=== PATIENT | male | born 1975 | race Caucasian/White ===

== ENCOUNTER 2017-06-16 04:09 | Inpatient (IN) | payer MEDICAID ==
[~2017-06-16] VITALS: Ht 170.2 cm; Wt 65.8 kg
--- NOTE | 2017-06-16 04:09 | NUR ---
Patient was BIBA and taken to bed 03 via gurney per EMS.
[2017-06-16 04:10] VITALS: BP 162/95
[2017-06-16] MEDS ORDERED: NACL 0.9% 1,000 ML IV ONE (04:35)
[2017-06-16] MEDS ORDERED: KETOROLAC 30 MG/ML VIAL IVP ONE (04:35)
[2017-06-16 04:54] LABS: HEMATOCRIT 22.7 % (36-52); HEMOGLOBIN 7.6 g/dL (12.0-18.0); MEAN CORPUSCULAR HEMOGLOBIN 28 pg (27-31); MEAN CORPUSCULAR HGB CONC 34 g/dL (33-37); MEAN CORPUSCULAR VOLUME 84 fL (80-94); PLATELET COUNT (AUTO) 109 K/uL (140-450); RED BLOOD CELL COUNT(AUTO) 2.71 MIL/uL (4.20-6.10); RED CELL DISTRIBUTION WIDTH 16.1 % (11.6-13.7); WHITE BLOOD COUNT (AUTO) 5.2 K/uL (4.8-10.8)
--- NOTE | 2017-06-16 04:56 | NUR ---
Patient taken to CT via saman persaud.
--- NOTE | 2017-06-16 05:04 | NUR ---
61Y/M PT BIBA C/O LOW BS39, [facility] GAVE D10 2ND ACCU CK BY [facility] 158. PT AAOX4 WITH PALE/COOL/SKIN, ACCU AT [facility] 104 AND HEADACHE. PT CAN NOT RECALL ANY HOME MEDS/DOSE AT THIS TIME. ER MD NOTIFTED. VSS.
[2017-06-16 05:07] LABS: ANION GAP 10.1 (8-16); CALCIUM 8.2 mg/dL (8.5-10.1); CARBON DIOXIDE 26.6 mmol/L (21-32); CHLORIDE 106 mmol/L (98-107); CREATININE 1.4 mg/dL (0.7-1.3); GFR ARICAN-AMERICAN 71 mL/min (>90); GFR NON ARICAN-AMERICAN 59 mL/min (>90); GLUCOSE 102 mg/dL (74-106); POTASSIUM 3.7 mmol/L (3.5-5.1); SODIUM SERUM 139 mmol/L (136-145); UREA NITROGEN, BLOOD 37 mg/dL (7-18)
[2017-06-16 05:10] LABS: EOSINOPHILS % (MANUAL) 7 % (0-4); LYMPHOCYTES % (MANUAL) 11 % (20-46); MONOCYTES % (MANUAL) 3 % (5-12); NEUTROPHILS % (MANUAL) 79 (43-65)
[2017-06-16 05:12] LABS: PARTIAL THROMBOPLASTIN TIME 26.9 secs (22-35.6)
[2017-06-16 05:13] LABS: ALANINE AMINOTRANSFERASE 40 U/L (16-63); ALBUMIN 2.9 g/dL (3.4-5.0); ALCOHOL, BLOOD < 3 mg/dL (<3); ALKALINE PHOSPHATASE 216 U/L (46-116); ASPARTATE AMINOTRANSFERASE 34 U/L (15-37); TOTAL BILIRUBIN 0.6 mg/dL (0.0-1.0); TOTAL PROTEIN, SERUM 6.5 g/dL (6.4-8.2)
--- NOTE | 2017-06-16 05:30 | NUR ---
PER JOSE MARTIN HOUSE SUPERVISER; ER HOLD PT. UNTIL 0700AM
[2017-06-16] MEDS ORDERED: NACL 0.9% 1,000 ML IV SCH (05:34)
[2017-06-16] MEDS ORDERED: MORPHINE SULFATE 2 MG/ML SYR IVP PRN (05:35)
[2017-06-16] MEDS ORDERED: ONDANSETRON 4 MG/2 ML VIAL IM/IVP PRN (05:35)
[2017-06-16] MEDS ORDERED: DOCUSATE SODIUM 100 MG GELCAP PO PRN (05:35)
[2017-06-16] MEDS ORDERED: ACETAMINOPHEN 325 MG TAB PO PRN (05:35)
[2017-06-16 05:54] LABS: AMPHETAMINE, URINE NEG. ng/ml (NEG <=1000); BARBITURATE, URINE NEG. ng/ml (NEG <=200); BENZODIAZEPINE, URINE NEG. ng/mL (NEG <=200); CANNABINOID, URINE NEG. ng/mL (NEG <=50); COCAINE, URINE NEG. ng/mL (NEG <=300); OPIATE, URINE NEG. ng/mL (NEG <=2000); PHENCYCLIDINE SCREEN,URINE NEG. ng/mL (NEG <=25)
[2017-06-16] MEDS ORDERED: MECLIZINE 25 MG TAB PO PRN ×2 (05:55→06:00)
--- NOTE | 2017-06-16 06:20 | NUR ---
Patient will be admitted to care of . Admited to TELEMETRY. Will go to [id number]. Belongings list completed. Report to MARIYA BOLDEN.
[2017-06-16] MEDS ORDERED: DEXT 5% / NACL 0.9% 500 ML IV SCH (07:10)
--- NOTE | 2017-06-16 07:20 | NUR ---
RECEIVED REPORT FROM YUAN MERAZ. PT ARRIVED ON MST UNIT AT 0620. PT AWAKE AND ALERT, NO SIGNS OF ACUTE DISTRESS. BOWEL SOUNDS ACTIVE IN ALL 4 QUADRANTS. BOWEL AND BLADDER CONTINENCE. SKIN INTACT. AMBULATORY WITH BRP. IV PATENT AND ASYMPTOMATIC. PATIENT DENIES PAIN AT THIS TIME. PATIENT BLOOD SUGAR 175, WILL ADMINISTER INSULIN ORDERED. RE-ORIENTED TO HOSPITAL AND TO UNIT, PT VERBALIZED UNDERSTANDING. BED IN LOW POSITION WITH BILATERAL HALF SIDE RAILS UP, CALL LIGHT WITHIN REACH. WILL CONTINUE TO MONITOR.
[2017-06-16 07:21] LABS: CHOL/HDL RATIO 1.9 (1-4.5); FREE T4 (FREE THYROXINE) 0.88 ng/dL (0.76-1.46); MAGNESIUM 2.2 mg/dL (1.8-2.4); THYROID STIMULATING HORMONE 2.16 uIU/mL (0.34-3.74)
--- NOTE | 2017-06-16 07:30 | NUR ---
PATIENT BLOOD SUGAR 175, NOTED, WILL ADMINISTER INSULIN ORDERED.
--- NOTE | 2017-06-16 08:00 | NUR ---
PATIENT BLOOD PRESSURE 176/[address] JENNIFER SANDERS.
[2017-06-16] MEDS ORDERED: ENALAPRILAT 2.5 MG/2 ML VIAL IVP SCH (08:04)
[2017-06-16] MEDS: BLOOD GLUCOSE MONITORING 1 DEV DEV FS SCH ×4 (08:09→21:00)
[2017-06-16] MEDS: LISINOPRIL 20 MG TAB PO SCH (08:37)
[2017-06-16] MEDS: INSULIN LISPRO SLIDING SCALE 100 UNITS/ML VIAL SUBQ PRN ×4 (08:42→21:02)
--- NOTE | 2017-06-16 08:45 | NUR ---
RECEIVED ORDER FOR VASOTEC FROM DR RODRIGUEZ FOR ELEVATED BLOOD PRESSURE OF 176/124, NOTED, WILL CARRY OUT.
[2017-06-16] MEDS: NACL 0.9% 1,000 ML IV SCH (08:48)
[2017-06-16 09:21] LABS: APPEARANCE,URINE CLEAR (CLEAR); BILIRUBIN,URINE NEGATIVE (NEGATIVE); BLOOD, URINE 2+ (NEGATIVE); COLOR,URINE YELLOW (YELLOW); LEUKOCYTE ESTERASE ,URINE NEGATIVE (NEGATIVE); NITRITE, URINE NEGATIVE (NEGATIVE); PROTEIN,URINE 2+ (NEGATIVE); UGLUCOSE NEGATIVE (NEGATIVE); UROBILINOGEN,URINE 0.2 EU/dL (0.2 - 1)
[2017-06-16 09:28] LABS: BACTERIA,URINE OCCASSIONAL /HPF (None Seen); WBC,URINE 0-5 (RARE) /HPF (0-5)
--- NOTE | 2017-06-16 11:04 | NUR ---
PATIENT COMPLAINT OF DIZZINESS AND PAIN IN HEAD 6/10. WILL ADMINISTER PRN MEDICATIONS ORDERED AND CONTINUE TO MONITOR.
[2017-06-16] MEDS ORDERED: METOPROLOL 25 MG TAB PO SCH (11:10)
--- NOTE | 2017-06-16 11:19 | NUR ---
PATIENT BLOOD SUGAR 279, NOTED, WILL ADMINISTER INSULIN ORDERED.
[2017-06-16] MEDS: HYDROcodone/APAP 7.5/325 MG 1 TAB PO PRN (11:22)
--- NOTE | 2017-06-16 11:26 | NUR ---
RECEIVED NEW ORDERS, NOTED, WILL CARRY OUT.
[2017-06-16 12:00] VITALS: BP 164/89
--- NOTE | 2017-06-16 14:20 | NUR ---
RECEIVED NEW ORDER TO TRANSFER PATIENT FROM TELE TO MED SURG, NOTED WILL CARRY OUT.
[2017-06-16] MEDS ORDERED: LABETALOL 100 MG/20 ML VIAL IVP SCH (15:28)
--- NOTE | 2017-06-16 15:30 | NUR ---
PATIENT RESTING COMFORTABLY IN BED, BLOOD PRESSURE 181/97, PULSE 77, TEMPERATURE 98.9, OXYGEN SATURATION 99%, RESPIRATIONS 18 AND 0/[address] RODRIGUEZ AND DR DIMAS BP AND PULSE.
--- NOTE | 2017-06-16 15:40 | NUR ---
RECEIVED NEW ORDER FOR LABETOLOL IVP FOR ELEVATED BLOOD PRESSURE. NOTED, WILL CARRY OUT.
--- NOTE | 2017-06-16 15:44 | NUR ---
PATIENT BLOOD SUGAR 277, NOTED, WILL ADMINISTER INSULIN ORDERED.
[2017-06-16 16:00] VITALS: BP 181/97
--- NOTE | 2017-06-16 16:56 | NUR ---
PATIENT RESTING COMFORTABLY SOCIAL SERVICES COORDINATOR PERFORMING CAROTID, BLE ARTERIAL AND VENOUS ULTRASOUNDS. BLOOD PRESSURE RE-EVALUATION IS 141/77 AND PULSE IS 78. WILL CONTINUE TO MONITOR.
--- NOTE | 2017-06-16 17:50 | NUR ---
PATIENT SITTING UPRIGHT EATING DINNER, NO SIGNS OF ACUTE DISTRESS. BED IN LOW POSITION WITH BILATERAL HALF SIDE RAILS UP, CALL LIGHT WITHIN REACH. WILL CONTINUE TO MONITOR.
--- NOTE | 2017-06-16 19:22 | NUR ---
PT AWAKE AND ALERT, NO SIGNS OF ACUTE DISTRESS. ENDORSED TO MACHINE STOPPAGE FREQUENCY CHECKER NURSE FOR CONTINUITY OF CARE.
--- NOTE | 2017-06-16 19:23 | NUR ---
RECEIVED REPORT FROM AM NURSE. PT ASLEEP, BUT IS AROUSED WHEN NAME IS CALLED. NO S/S OF DISTRESS. NO COMPLAINTS OF PAIN AT THIS TIME. WITH A RIGHT AC 20 G, PATENT AND INTACT. INITIAL ASSESSMENT DONE. NOTED WITH LEFT ANKLE EDEMA. WITH A RIGHT FOOT 3RD TOE AMPUTATION, AND A LEFT FOOT TOE AMPUTATION NOTED. ORIENTED PT TO THE UNIT, VERBALIZED UNDERSTANDING. WITH DR. HOFFMAN AT BEDSIDE FOR PSYCH CONSULT. WILL CONTINUE TO MONITOR. ALL NEEDS ATTENDED. CALL LIGHT WITHIN REACH. SAFETY CHECKS IN PLACE.
--- NOTE | 2017-06-16 19:25 | NUR ---
DR JUDD ASSESSED THE PATIENT FOR PSYCH EVALUATION AND HAD ORDERS OF MENTAL HEALTH COUNSELING. NOTED. WILL CONTINUE TO MONITOR FOR ANY CHANGES.
[2017-06-16] MEDS: CALCIUM CARB/VIT-D 500 MG/200 IU 1 TAB PO SCH (20:58)
[2017-06-16] MEDS: ATORVASTATIN 20 MG TAB PO SCH (20:58)
--- NOTE | 2017-06-16 21:02 | NUR ---
DUE MEDS GIVEN, WELL TOLERATED BY THE PATIENT. BLOOD SUGAR CHECK OF 297, GAVE 6 UNITS OF INSULIN. WILL CONTINUE TO MONITOR. ALL NEEDS ATTENDED. CALL LIGHT WITHIN REACH.
[2017-06-17] VITALS: BP 153/86
--- NOTE | 2017-06-17 | NUR ---
VITAL SIGNS STABLE. NO S/S OF DISTRESS. NO COMPLAINTS OF PAIN. WILL CONTINUE TO MONITOR. CALL LIGHT WITHIN REACH.
[2017-06-17] MEDS: NACL 0.9% 1,000 ML IV SCH (00:20)
--- NOTE | 2017-06-17 00:30 | NUR ---
INFORMED DR. FOLEY THAT THE PATIENT DID NOT HAVE AN ORDER FOR A DIET. PUT IN ORDERS FOR A [facility] DIET. NOTED.
--- NOTE | 2017-06-17 02:23 | NUR ---
MADE ROUNDS. PT ASLEEP. NO S/S OF DISTRESS. WILL CONTINUE TO MONITOR. CALL LIGHT WITHIN REACH.
--- NOTE | 2017-06-17 04:45 | NUR ---
MADE ROUNDS, PT ASLEEP. NO S/S OF DISTRESS. NO COMPLAINTS OF PAIN. WILL CONTINUE TO MONITOR. CALL LIGHT WITHIN REACH. SAFETY CHECKS IN PLACE.
[2017-06-17 06:05] LABS: ANION GAP 9.3 (8-16); CALCIUM 7.6 mg/dL (8.5-10.1); CARBON DIOXIDE 26.1 mmol/L (21-32); CREATININE 1.6 mg/dL (0.7-1.3); PHOSPHORUS 4.8 mg/dL (2.5-4.9); POTASSIUM 4.4 mmol/L (3.5-5.1)
[2017-06-17] MEDS: HYDROcodone/APAP 7.5/325 MG 1 TAB PO PRN (06:34)
[2017-06-17] MEDS: INSULIN LISPRO SLIDING SCALE 100 UNITS/ML VIAL SUBQ PRN ×2 (06:34→12:46)
[2017-06-17] MEDS: BLOOD GLUCOSE MONITORING 1 DEV DEV FS SCH ×8 (07:03→20:20)
--- NOTE | 2017-06-17 07:19 | NUR ---
ENDORSED TO AM SHIFT NURSE FOR CONTINUITY OF CARE, IN STABLE CONDITION.
--- NOTE | 2017-06-17 07:22 | NUR ---
REPORT RECEIVED FROM NIGHT NURSE, A&OX4, NO COMPLAINTS OF PAIN, IV PATENT, CALL LIGHT WITHIN REACH, SAFETY MEASURES ENSURED, PT UP FOR BREAKFAST.
[2017-06-17 08:00] VITALS: BP 176/99
--- NOTE | 2017-06-17 08:09 | NUR ---
PATIENT HAS BEEN SCREENED AND CATEGORIZED MODERATE NUTRITION RISK. PATIENT WILL BE SEEN WITHIN 3-5 DAYS OF ADMISSION. 06/18/17-06/20/[address]
[2017-06-17] MEDS ORDERED: METOPROLOL 25 MG TAB PO SCH ×2 (09:00→21:00)
[2017-06-17] MEDS ORDERED: INSULIN NPH HUM/REG INSULIN HM 100 UNIT/ML 10 ML VIAL SQ SCH ×3 (09:00→17:00)
[2017-06-17] MEDS: ASPIRIN 81 MG TAB.CHEW PO SCH (09:35)
[2017-06-17] MEDS: CALCIUM CARB/VIT-D 500 MG/200 IU 1 TAB PO SCH ×2 (09:35→20:18)
[2017-06-17] MEDS: LISINOPRIL 20 MG TAB PO SCH (09:36)
--- NOTE | 2017-06-17 09:43 | NUR ---
MORNING MEDS GIVEN WITH TEACHING, PT VERBALIZED UNDERSTANDING, NO COMPLAINTS OF DISCOMFORT, NO S/S DISTRESS, SAFETY MEASURES ENSURED, WILL MONITOR.
--- NOTE | 2017-06-17 11:26 | NUR ---
SS NOTE: I SPOKE WITH PT WITH SERGIO GARCIA TO TRANSLATE BEDSIDE. I PROVIDED PT WITH [facility]PT [facility] [place].
--- NOTE | 2017-06-17 12:45 | NUR ---
PATIENT GIVEN HUMULIN 70/30 AND HUMALOG ORDERED BY MD PIÑA.
[2017-06-17] MEDS: DEXTROSE 50% 50 ML SYR IVP PRN (15:29)
--- NOTE | 2017-06-17 15:30 | NUR ---
PT STATES HE FEELS DIZZY. BS CHECKED. 47. D50 GIVEN[address] DR. EARLY MADE AWARE. WILL RECHECK.
[2017-06-17 16:00] VITALS: BP 169/89
--- NOTE | 2017-06-17 16:30 | NUR ---
PT'S BLOOD SUGAR 62. APPLE JUICE GIVEN. DR. EARLY NOTIFIED.
[2017-06-17] MEDS ORDERED: DEXT 5% /NACL 0.9% 1,000 ML IV ONE (17:25)
--- NOTE | 2017-06-17 19:30 | NUR ---
REPORT GIVEN TO NIGHT NURSE, SAFETY ENSURED, NO S/S DISTRESS.
--- NOTE | 2017-06-17 19:31 | NUR ---
RECEIVED REPORT FROM AM NURSE. PT AWAKE, AOX4, GEORGIAN SPEAKING. IS AMBULATORY. WITH A RIGHT WRIST 20 G, INTACT AND PATENT. NO S/S OF DISTRESS. NO COMPLAINTS OF PAIN. INITIAL ASSESSMENT DONE. REORIENTED PATIENT TO THE UNIT, VERBALIZED UNDERSTANDING. CALL LIGHT WITHIN REACH. ALL NEEDS ATTENDED. SAFETY CHECKS IN PLACE. WILL CONTINUE TO MONITOR FOR ANY CHANGES.
[2017-06-17] MEDS: ATORVASTATIN 20 MG TAB PO SCH (20:18)
--- NOTE | 2017-06-17 20:18 | NUR ---
DUE MEDS GIVEN, WELL TOLERATED. CALL LIGHT WITHIN REACH. SAFETY CHECKS IN PLACE. WILL CONTINUE TO MONITOR. ALL NEEDS ATTENDED.
[2017-06-18] VITALS: BP 153/97
--- NOTE | 2017-06-18 | NUR ---
VITAL SIGNS STABLE. NO COMPLAINTS OF PAIN. NO S/S OF DISTRESS. WILL CONTINUE TO MONITOR. ALL NEEDS ATTENDED. CALL LIGHT WITHIN REACH. SAFETY CHECKS IN PLACE.
--- NOTE | 2017-06-18 02:28 | NUR ---
MADE ROUNDS. PT ASLEEP. NO S/S OF DISTRESS. WILL CONTINUE TO MONITOR. ALL NEEDS ATTENDED. CALL LIGHT WITHIN REACH.
--- NOTE | 2017-06-18 04:00 | NUR ---
MADE ROUNDS, PT ASLEEP. NO S/S OF DISTRESS. WILL CONTINUE TO MONITOR. CALL LIGHT WITHIN REACH.
[2017-06-18] MEDS: HYDROcodone/APAP 7.5/325 MG 1 TAB PO PRN (05:17)
--- NOTE | 2017-06-18 05:17 | NUR ---
PT COMPLAINED OF A HEADACHE, GAVE PRN NORCO.
[2017-06-18 05:57] LABS: BASOPHILS % (AUTO) 0.6 % (0.0-2.0); EOSINOPHILS # (AUTO) 0.8 K/uL (0-0.4); EOSINOPHILS % (AUTO) 12.7 % (0.0-4.0); HEMATOCRIT 21.8 % (36-52); HEMOGLOBIN 7.3 g/dL (12.0-18.0); LYMPHOCYTES # (AUTO) 1.1 K/uL (2.0-11.5); LYMPHOCYTES % (AUTO) 17.9 % (20.5-51.1); MEAN CORPUSCULAR HEMOGLOBIN 29 pg (27-31); MEAN CORPUSCULAR HGB CONC 34 g/dL (33-37); MEAN CORPUSCULAR VOLUME 85 fL (80-94); MONOCYTES # (AUTO) 0.4 K/uL (0.8-1.0); MONOCYTES % (AUTO) 6.2 % (1.7-9.3); NEUTROPHILS # (AUTO) 4.1 K/uL (1.8-7.7); NEUTROPHILS % (AUTO) 62.6 % (42.2-75.2); PLATELET COUNT (AUTO) 109 K/uL (140-450); RED BLOOD CELL COUNT(AUTO) 2.55 MIL/uL (4.20-6.10); RED CELL DISTRIBUTION WIDTH 16.6 % (11.6-13.7); WHITE BLOOD COUNT (AUTO) 6.4 K/uL (4.8-10.8)
[2017-06-18] MEDS: INSULIN LISPRO SLIDING SCALE 100 UNITS/ML VIAL SUBQ PRN ×4 (06:17→22:04)
[2017-06-18 06:21] LABS: FOLIC ACID 9.5 ng/mL (>3.0); T4 (THYROXINE) 5.9 ug/dL (4.5-12.0)
--- NOTE | 2017-06-18 06:24 | NUR ---
BLOOD SUGAR NOTED TO BE 310 GAVE 8 UNITS OF HUMALOG
[2017-06-18 06:28] LABS: ANION GAP 10.7 (8-16); CALCIUM 8.1 mg/dL (8.5-10.1); CARBON DIOXIDE 24.2 mmol/L (21-32); CREATININE 1.5 mg/dL (0.7-1.3); POTASSIUM 4.9 mmol/L (3.5-5.1)
[2017-06-18] MEDS ORDERED: INSULIN NPH HUM/REG INSULIN HM 100 UNIT/ML 10 ML VIAL SQ SCH (06:30)
[2017-06-18] MEDS: BLOOD GLUCOSE MONITORING 1 DEV DEV FS SCH ×4 (06:33→21:50)
[2017-06-18 06:36] LABS: MAGNESIUM 1.9 mg/dL (1.8-2.4); PHOSPHORUS 4.3 mg/dL (2.5-4.9)
--- NOTE | 2017-06-18 07:28 | NUR ---
ENDORSED TO AM SHIFT NURSE FOR CONTINUITY OF CARE, IN STABLE CONDITION.
--- NOTE | 2017-06-18 07:29 | NUR ---
REPORT RECEIVED FROM NIGHT NURSE, RACHELLE EDWARDS, PT A&OX4, WILL FOLLOW UP, SAFETY MEASURES ENSURED, CALL LIGHT WITHIN REACH, WILL MONITOR.
[2017-06-18 08:00] VITALS: BP 159/95
[2017-06-18 08:09] LABS: HEMOGLOBIN A1C 8.7 % (4.8-5.6)
[2017-06-18] MEDS ORDERED: INSULIN DETEMIR 100 UNITS/ML 10 ML VIAL SUBQ SCH ×3 (09:00)
[2017-06-18] MEDS ORDERED: LISINOPRIL 20 MG TAB PO SCH (09:00)
[2017-06-18] MEDS: ASPIRIN 81 MG TAB.CHEW PO SCH (09:56)
[2017-06-18] MEDS: SERTRALINE 50 MG TAB PO SCH (09:57)
[2017-06-18] MEDS: CALCIUM CARB/VIT-D 500 MG/200 IU 1 TAB PO SCH ×2 (09:57→21:38)
--- NOTE | 2017-06-18 09:58 | NUR ---
MORNING MEDS GIVEN WITH TEACHING, PT VERBALIZED UNDERSTANDING, CALL LIGHT WITHIN REACH, SAFETY MEASURES ENSURED AND WILL MONITOR WITH FREQUENT CHECKS.
--- NOTE | 2017-06-18 11:30 | NUR ---
PT IV MED STARTED, DR JACKSON CAME IN TO SEE PATIENT, B/P 86/58, DR JACKSON MADE AWARE. Addendum: 06/18/17 at 1135 by Angelika Santamaria RN WRONG PATIENT CHARTED FOR CONCERNING IV MEDS.
--- NOTE | 2017-06-18 11:58 | NUR ---
PT ASSESSED, NO COMPLAINTS OF DISCOMFORT OR PAIN, CALL LIGHT WITHIN REACH, SAFETY MEASURES ENSURED, WILL MONITOR.
[2017-06-18] MEDS ORDERED: INSULIN NPH HUM/REG INSULIN HM 100 UNIT/ML 10 ML VIAL SUBQ SCH (12:00)
--- NOTE | 2017-06-18 13:25 | NUR ---
CM NOTE CHART REVIEW DONE. NO POST ACUTE NEEDS IDENTIFIED AT THIS TIME.
--- NOTE | 2017-06-18 14:50 | NUR ---
PT SLEEPING, STATED NO COMPLAINTS OF DISCOMFORT, LIGHT YELLOW URINE IN URINAL 200ML, CALL LIGHT WITHIN REACH, SAFETY ENSURED, WILL MONITOR.
[2017-06-18 16:00] VITALS: BP 166/82
[2017-06-18 18:00] VITALS: BP 166/82
--- NOTE | 2017-06-18 19:27 | NUR ---
REPORT GIVEN TO NIGHT NURSE, PT VERBALIZED UNDERSTANDING NEW NURSE FOR THE NIGHT, NO S/S OF DISTRESS, CALL LIGHT WITHIN REACH, SAFETY MEASURES ENSURED.
--- NOTE | 2017-06-18 19:28 | NUR ---
RECD. RESTING IN BED, AWAKE, A/OX4. RESPIRATION EVEN AND UNLABORED. IV SALINE LOCK AT THE RIGHT WRIST G20, PATENT AND INTACT. AMBULATORY TO THE BR. PLAN OF CARE FOR THE SHIFT DISCUSSED. VERBALIZED UNDERSTANDING. DENIES PAIN 0/10.
--- NOTE | 2017-06-18 20:00 | NUR ---
Patient's Plan of Care was discussed and reviewed with DISABILITY CASE MANAGER: KAILYN BOOTHE
[2017-06-18] MEDS: ATORVASTATIN 20 MG TAB PO SCH (21:38)
--- NOTE | 2017-06-18 21:50 | NUR ---
VOMITED MODERATE AMOUNT OF SOLIDS WITH SMALL AMOUNT OF LIQUIDS. MEDICATED WITH ZOFRAN 4 MG. IVP BY TAYLOR MAHER.
--- NOTE | 2017-06-18 22:20 | NUR ---
RESTING IN BED, NO NAUSEA AND VOMITING NOTED. WARM BLANKETS GIVEN.
--- NOTE | 2017-06-19 | NUR ---
CHECKED PATIENT, VOMITED AGAIN, MODERATE AMOUNT OF SOLIDS AND LIQUIDS. WILL INFORM MD.
[2017-06-19 00:45] VITALS: BP 183/105
[2017-06-19] MEDS ORDERED: NACL 0.9% 1,000 ML IV SCH (00:45)
[2017-06-19] MEDS ORDERED: METOCLOPRAMIDE 10 MG/2 ML INJ VIAL IVP PRN ×2 (01:00→08:05)
--- NOTE | 2017-06-19 01:04 | NUR ---
INFORMED DR. ROACH, BP OF PATIENT - 183/105, HR - 83. ORDERED HYDRALAZINE PRN FOR BP ABOVE 180.
[2017-06-19] MEDS ORDERED: hydrALAZINE 20 MG/ML VIAL IVP PRN (01:05)
--- NOTE | 2017-06-19 01:28 | NUR ---
MEDICATED WITH REGLAN ORDERED PER MD BY MARIYA LEROY.
--- NOTE | 2017-06-19 01:34 | NUR ---
BP RECHECKED - 183/102, HR - 80, RAD RN MEDICATE PATIENT WITH HYDRALAZINE ORDERED BY . WILL CONTINUE TO MONITOR.
--- NOTE | 2017-06-19 02:15 | NUR ---
BP CHECKED - 151/92, HR -87, PATIENT RESTING IN BED.
[2017-06-19 05:14] VITALS: BP 161/101
[2017-06-19 06:20] LABS: BASOPHILS % (AUTO) 0.4 % (0.0-2.0); EOSINOPHILS # (AUTO) 0.6 K/uL (0-0.4); EOSINOPHILS % (AUTO) 8.8 % (0.0-4.0); LYMPHOCYTES # (AUTO) 0.8 K/uL (2.0-11.5); LYMPHOCYTES % (AUTO) 12.7 % (20.5-51.1); MEAN CORPUSCULAR HEMOGLOBIN 29 pg (27-31); MEAN CORPUSCULAR HGB CONC 34 g/dL (33-37); MEAN CORPUSCULAR VOLUME 85 fL (80-94); MONOCYTES # (AUTO) 0.4 K/uL (0.8-1.0); MONOCYTES % (AUTO) 5.4 % (1.7-9.3); NEUTROPHILS # (AUTO) 4.7 K/uL (1.8-7.7); NEUTROPHILS % (AUTO) 72.7 % (42.2-75.2); PLATELET COUNT (AUTO) 97 K/uL (140-450); RED BLOOD CELL COUNT(AUTO) 2.45 MIL/uL (4.20-6.10); RED CELL DISTRIBUTION WIDTH 16.3 % (11.6-13.7); WHITE BLOOD COUNT (AUTO) 6.5 K/uL (4.8-10.8)
[2017-06-19 06:30] LABS: ANION GAP 12.2 (8-16); CALCIUM 8.2 mg/dL (8.5-10.1); CARBON DIOXIDE 24.4 mmol/L (21-32); CREATININE 1.4 mg/dL (0.7-1.3); POTASSIUM 4.6 mmol/L (3.5-5.1)
[2017-06-19 06:50] LABS: MAGNESIUM 1.8 mg/dL (1.8-2.4); PHOSPHORUS 4.5 mg/dL (2.5-4.9)
[2017-06-19] MEDS: BLOOD GLUCOSE MONITORING 1 DEV DEV FS SCH ×4 (06:56→20:44)
[2017-06-19] MEDS: INSULIN LISPRO SLIDING SCALE 100 UNITS/ML VIAL SUBQ PRN ×2 (06:59→12:26)
[2017-06-19 07:23] LABS: HEMATOCRIT 20.8 % (36-52)
--- NOTE | 2017-06-19 07:30 | NUR ---
REPORT RECEIVED FROM NIGHT NURSE, PT A&OX4, NO COMPLAINTS OF PAIN OR DISCOMFORT, IV PATENT, CALL LIGHT WITHIN REACH, SAFETY MEASURES ENSURED, WILL MONITOR.
[2017-06-19] MEDS ORDERED: INSULIN DETEMIR 100 UNITS/ML 10 ML VIAL SUBQ SCH ×2 (09:00)
[2017-06-19] MEDS: CALCIUM CARB/VIT-D 500 MG/200 IU 1 TAB PO SCH ×2 (09:58→20:45)
[2017-06-19] MEDS: SERTRALINE 50 MG TAB PO SCH (09:59)
[2017-06-19] MEDS: ASPIRIN 81 MG TAB.CHEW PO SCH (09:59)
--- NOTE | 2017-06-19 09:59 | NUR ---
MORNING MEDS GIVEN WITH TEACHING, NO COMPLAINTS OF PAIN, CALL LIGHT WITHIN REACH, SAFETY MEASURES ENSURED, WILL MONITOR.
[2017-06-19] MEDS: LISINOPRIL 20 MG TAB PO SCH (10:00)
[2017-06-19] MEDS: amLODIPine 5 MG TAB PO SCH (10:01)
[2017-06-19] MEDS: INSULIN DETEMIR 100 UNITS/ML 10 ML VIAL SUBQ SCH (10:07)
--- NOTE | 2017-06-19 12:20 | NUR ---
PT HAD COMPLAINTS OF NAUSEA, ANTI-NAUSEA MEDS GIVEN WITH TEACHING, PT VERBALIZED UNDERSTANDING AND STATED HE DID WANT TO EAT HIS LUNCH, SAFETY MEASURES ENSURED, CALL LIGHT WITHIN REACH, WILL MONITOR.
--- NOTE | 2017-06-19 13:05 | NUR ---
06/19/17 RD INITIAL ASSESSMENT COMPLETED PLEASE REFER TO NUTRITION ASSESSMENT UNDER CARE ACTIVITY FOR ESTIMATED NUTRITIONAL NEEDS. 1. CONTINUE RENAL, 60 G CONSISTENT CARBOHYDRATE DIET 2. PROVIDE NUTRITION THERAPY EDUCATION NEEDED 3. RD TO FOLLOW-UP MODERATE RISK, 3-[address]
--- NOTE | 2017-06-19 13:13 | NUR ---
PT SLEEPING, NO S/S OF DISTRESS, SAFETY MEASURES ENSURED, CALL LIGHT WITHIN REACH, WILL MONITOR.
--- NOTE | 2017-06-19 14:59 | NUR ---
PT HAD NO COMPLAINTS, STATED HE FELT A LITTLE LESS NAUSEATED SINCE GIVEN ANTI-NAUSEA MEDICATION, PT DRINKING WATER, CALL LIGHT WITHIN REACH, SAFETY MEASURES ENSURED AND WILL MONITOR.
[2017-06-19 16:00] VITALS: BP 147/72
--- NOTE | 2017-06-19 19:19 | NUR ---
REPORT GIVEN TO NIGHT NURSE, PT REMAINS STABLE
--- NOTE | 2017-06-19 19:20 | NUR ---
RECD. RESTING IN BED, AWAKE, A/OX4. RESPIRATION EVEN AND UNLABORED, SEEMS WEAK AND DEPRESSED. IV OF NS AT 100 ML/HR INFUSING, RIGHT WRIST G20. STATED NO NAUSEA AND DIARRHEA. PAIN IN THE ABDOMEN 11/13, AGREED TO CALL NURSE WHEN PAIN INCREASES. PLAN OF CARE FOR THE SHIFT DISCUSSED. VERBALIZED UNDERSTANDING. Addendum: 06/19/17 at 2058 by Rad Mart RN PER SAND SLINGER OPERATOR, PATIENT'S BLOOD SUGAR WAS 41, AND ASYMPTOMATIC. GAVE 50ML OF DEXTROSE VIA IV PER MD ORDERS. PATIENT IS STABLE, NO SIGNS OF DISTRESS. WILL REASSESS WITH SAND SLINGER OPERATOR. BED IN LOW POSITION, CALL LIGHT WITHIN REACH. WILL CONTINUE TO MONITOR. Addendum: 06/19/17 at 2104 by Rad Mart RN PLEASE DISREGARD ADDENDUM: 06/19/17 AT 2058 BY RDA MART RN. IT WAS MEANT A NEW NOTE.
--- NOTE | 2017-06-19 20:00 | NUR ---
Patient's Plan of Care was discussed and reviewed with LOOM OPERATOR APPRENTICE: KAILYN BOOTHE
--- NOTE | 2017-06-19 20:35 | NUR ---
TEACHING GIVEN ON THE EFFECT OF LOW BLOOD SUGAR. NEEDS REINFORCEMENT.
--- NOTE | 2017-06-19 20:44 | NUR ---
ROBIN CHECKED - 44, 120 ML ORANGE JUICE GIVEN, REFUSED SNACK EARLIER BUT AGREED TO EAT GELATIN, ATE ONLY 50%. NO APPETITE TO EAT. Addendum: 06/19/17 at 2140 by Alejandra Mercedes LVN CORRECTION: ROBIN 41 NOT 44
[2017-06-19] MEDS: HYDROcodone/APAP 7.5/325 MG 1 TAB PO PRN (20:45)
[2017-06-19] MEDS: ATORVASTATIN 20 MG TAB PO SCH (20:45)
[2017-06-19] MEDS: DEXTROSE 50% 50 ML SYR IVP PRN (20:51)
--- NOTE | 2017-06-19 20:59 | NUR ---
PER WORKDAY DIRECTOR, PATIENT'S BLOOD SUGAR WAS 41, AND ASYMPTOMATIC. GAVE 50ML OF DEXTROSE VIA IV PER MD ORDERS. PATIENT IS STABLE, NO SIGNS OF DISTRESS. WILL REASSESS WITH WORKDAY DIRECTOR. BED IN LOW POSITION, CALL LIGHT WITHIN REACH. WILL CONTINUE TO MONITOR.
--- NOTE | 2017-06-19 21:31 | NUR ---
BLOOD SUGAR CHECKED - 129, ENCOURAGED PATIENT TO EAT SNACK BUT REFUSED. WILL MONITOR.
[2017-06-20] VITALS: BP 132/78
--- NOTE | 2017-06-20 | NUR ---
BS CHECKED -113, RESTING IN BED. NO COMPLAINT OF PAIN 0/10.
--- NOTE | 2017-06-20 04:00 | NUR ---
SLEEPING COMFORTABLY IN BED. NO DISTRESS NOTED.
[2017-06-20 05:54] LABS: BASOPHILS # (AUTO) 0.1 K/uL (0.00-0.22); BASOPHILS % (AUTO) 1.4 % (0.0-2.0); EOSINOPHILS # (AUTO) 0.6 K/uL (0-0.4); EOSINOPHILS % (AUTO) 9.7 % (0.0-4.0); HEMATOCRIT 22.5 % (36-52); HEMOGLOBIN 7.4 g/dL (12.0-18.0); LYMPHOCYTES # (AUTO) 1.2 K/uL (2.0-11.5); LYMPHOCYTES % (AUTO) 18.7 % (20.5-51.1); MEAN CORPUSCULAR HEMOGLOBIN 28 pg (27-31); MEAN CORPUSCULAR HGB CONC 33 g/dL (33-37); MEAN CORPUSCULAR VOLUME 85 fL (80-94); MONOCYTES # (AUTO) 0.5 K/uL (0.8-1.0); MONOCYTES % (AUTO) 7.9 % (1.7-9.3); NEUTROPHILS # (AUTO) 4.2 K/uL (1.8-7.7); NEUTROPHILS % (AUTO) 62.3 % (42.2-75.2); PLATELET COUNT (AUTO) 133 K/uL (140-450); RED BLOOD CELL COUNT(AUTO) 2.66 MIL/uL (4.20-6.10); RED CELL DISTRIBUTION WIDTH 16.4 % (11.6-13.7); WHITE BLOOD COUNT (AUTO) 6.6 K/uL (4.8-10.8)
[2017-06-20 06:17] LABS: ANION GAP 10.5 (8-16); CALCIUM 8.5 mg/dL (8.5-10.1); CARBON DIOXIDE 25.5 mmol/L (21-32); CREATININE 1.5 mg/dL (0.7-1.3)
[2017-06-20 06:21] LABS: MAGNESIUM 1.7 mg/dL (1.8-2.4); PHOSPHORUS 5.2 mg/dL (2.5-4.9)
[2017-06-20] MEDS: BLOOD GLUCOSE MONITORING 1 DEV DEV FS SCH ×2 (06:25→11:30)
--- NOTE | 2017-06-20 06:25 | NUR ---
BS CHECKED - 155, WILL GIVE COVERAGE. ENCOURAGED TO EAT MEALS TODAY. WILL ENDORSE TO AM NURSE FOR CONTINUITY OF CARE.
[2017-06-20] MEDS: INSULIN LISPRO SLIDING SCALE 100 UNITS/ML VIAL SUBQ PRN ×2 (06:26→12:09)
--- NOTE | 2017-06-20 07:20 | NUR ---
ENDORSED TO MARIYA THOMSON FOR CONTINUITY OF CARE.
--- NOTE | 2017-06-20 07:21 | NUR ---
RECEIVED BEDSIDE REPORT FROM OPERATING ROOM SURGICAL TECHNOLOGIST NURSE, PT AWAKE AND ALERT NO SIGNS OF ACUTE DISTRESS. ON ROOM AIR. BOWEL SOUNDS ACTIVE IN ALL 4 QUADRANTS. BOWEL AND BLADDER CONTINENCE. SKIN INTACT WITH 3RD TOE AMP. ON RIGHT FOOT AND 5TH TOE AMP ON LEFT FOOT. AMBULATORY WITH BRP. IV PATENT AND ASYMPTOMATIC. PT DENIES PAIN AT THIS TIME. RE-ORIENTED TO HOSPITAL AND TO UNIT, PT VERBALIZED UNDERSTANDING. BED IN LOW POSITION WITH BILATERAL HALF SIDE RAILS UP, CALL LIGHT WITHIN REACH. WILL CONTINUE TO MONITOR.
[2017-06-20 08:00] VITALS: BP 171/94
[2017-06-20] MEDS ORDERED: LISINOPRIL 20 MG TAB PO SCH (08:23)
[2017-06-20] MEDS: CALCIUM CARB/VIT-D 500 MG/200 IU 1 TAB PO SCH (08:32)
[2017-06-20] MEDS: amLODIPine 5 MG TAB PO SCH (08:32)
[2017-06-20] MEDS: SERTRALINE 50 MG TAB PO SCH (08:32)
[2017-06-20] MEDS: ASPIRIN 81 MG TAB.CHEW PO SCH (08:32)
[2017-06-20] MEDS: LISINOPRIL 20 MG TAB PO SCH (08:33)
[2017-06-20] MEDS ORDERED: ASPI81CT27 PO (08:37)
[2017-06-20] MEDS ORDERED: ATOR20TA40 PO (08:37)
[2017-06-20] MEDS ORDERED: AMLO5TAB4 PO (08:37)
[2017-06-20] MEDS ORDERED: SERT-146 PO (08:37)
[2017-06-20] MEDS ORDERED: LISI-420 PO (08:37)
[2017-06-20] MEDS ORDERED: LEVEMIR SUBQ (08:37)
[2017-06-20] MEDS ORDERED: CALC-602 PO (08:37)
[2017-06-20] MEDS: INSULIN DETEMIR 100 UNITS/ML 10 ML VIAL SUBQ SCH (08:38)
--- NOTE | 2017-06-20 08:44 | NUR ---
RECEIVED DISCHARGE ORDER FROM DR EARLY, NOTED, WILL CARRY OUT.
[2017-06-20] MEDS ORDERED: LOSARTAN 50 MG TAB PO SCH (09:00)
[2017-06-20] MEDS ORDERED: LISI40TA4 PO (09:37)
--- NOTE | 2017-06-20 13:30 | NUR ---
PT AWAKE AND ALERT, NO SIGNS OF ACUTE DISTRESS. USED BLUE REALTIME CAPTIONER PHONE, REALTIME CAPTIONER DESTIN #[id number], TO EDUCATE PATIENT REGARDING SIGNS AND SYMPTOMS OF WORSENING CONDITION AND INFECTION, NEW PRESCRIPTION INFORMATION, FOLLOW UP WITH MD AND INFORMATION OF DIET AND MANAGEMENT OF DIABETES, PATIENT VERBALIZED UNDERSTANDING. CUT OFF WRIST BANDS AND REMOVED IV. PATIENT DENIES PAIN AT THIS TIME. PROVIDED PATIENT WITH A BUS PASS TO GO HOME. WHEELED PATIENT OUT TO FRONT LOBBY, PATIENT TO GO HOME VIA PUBLIC TRANSPORTATION.
== END 2017-06-20 13:30 | disposition home or self-care (01) | DRG 420 ==
LOC: MED 04:09 → MTU 05:47
PROVIDERS: ADMIT Family Medicine; ATTEND Family Medicine
DX: E11.649 Type 2 diabetes mellitus with hypoglycemia without coma (principal); N17.0 Acute kidney failure with tubular necrosis; E44.0 Moderate protein-calorie malnutrition; D68.59 Other primary thrombophilia; F33.9 Major depressive disorder, recurrent, unspecified; E88.09 Other disorders of plasma-protein metabolism, not elsewhere classified; G90.9 Disorder of the autonomic nervous system, unspecified; E11.51 Type 2 diabetes mellitus with diabetic peripheral angiopathy without gangrene; K21.9 Gastro-esophageal reflux disease without esophagitis; M94.0 Chondrocostal junction syndrome [Tietze]; D64.9 Anemia, unspecified; E83.51 Hypocalcemia; I10 Essential (primary) hypertension; Z89.421 Acquired absence of other right toe(s); Z89.422 Acquired absence of other left toe(s); Z79.4 Long term (current) use of insulin; Z91.14 Patient's other noncompliance with medication regimen; Z68.22 Body mass index [BMI] 22.0-22.9, adult
CPT/HCPCS: 36415; 70450; 71010; 80048; 80053; 80305; 81001; 82150; 82272; 82550; 82607; 82728; 82746; 82948; 82977; 83036; 83540; 83690; 83735; 83880; 84100; 84436; 84439; 84443; 84479; 84484; 85025; 85045; 85610; 85730; 87040; 87081; 93005; 93880; 93925; 93970; 96361; 96374; 96375; 99285; G0482; J0360; J1815; J1885; J2270; J2405; J2765; J3490; J7030; J7042; J8597; Q0092

== ENCOUNTER 2017-07-03 19:07 | Emergency (ER) | payer MEDICAID ==
[~2017-07-03] VITALS: Ht 165.1 cm; Wt 63.5 kg
[~2017-07-03 19:07] MED LIST: AMLO5TAB4 PO; ASPI81CT27 PO; ATOR20TA40 PO; CALC-602 PO; LEVEMIR SUBQ; LISI40TA4 PO; SERT-146 PO
[2017-07-03 19:26] VITALS: BP 151/85
[2017-07-03 20:08] LABS: BASOPHILS # (AUTO) 0.1 K/uL (0.00-0.22); EOSINOPHILS # (AUTO) 0.2 K/uL (0-0.4); HEMOGLOBIN 7.6 g/dL (12.0-18.0); MONOCYTES # (AUTO) 0.3 K/uL (0.8-1.0)
[2017-07-03 20:29] LABS: ALBUMIN 2.7 g/dL (3.4-5.0); ANION GAP 16.9 (8-16); CARBON DIOXIDE 18.7 mmol/L (21-32); CREATININE 1.9 mg/dL (0.7-1.3); POTASSIUM 4.6 mmol/L (3.5-5.1); TOTAL BILIRUBIN 0.5 mg/dL (0.0-1.0)
[2017-07-03 20:30] LABS: APPEARANCE,URINE CLEAR (CLEAR); BILIRUBIN,URINE NEGATIVE (NEGATIVE); BLOOD, URINE 3+ (NEGATIVE); COLOR,URINE YELLOW (YELLOW); LEUKOCYTE ESTERASE ,URINE NEGATIVE (NEGATIVE); NITRITE, URINE NEGATIVE (NEGATIVE); PH,URINE 5.5 (5.0-9.0); UGLUCOSE 3+ (NEGATIVE)
--- NOTE | 2017-07-03 20:33 | NUR ---
PT RETURN FROM CT TO ER LOBBY
[2017-07-03 20:45] LABS: URINE AMORPHOUS URATE 1+ /HPF (None Seen); WBC,URINE 0-3 /HPF (0-5)
[2017-07-03 20:55] LABS: HEMATOCRIT 23.2 % (36-52); LYMPHOCYTES # (AUTO) 0.7 K/uL (2.0-11.5); LYMPHOCYTES % (AUTO) 9.7 % (20.5-51.1); MEAN CORPUSCULAR HEMOGLOBIN 28 pg (27-31); MEAN CORPUSCULAR HGB CONC 33 g/dL (33-37); MEAN CORPUSCULAR VOLUME 87 fL (80-94); MONOCYTES % (AUTO) 3.7 % (1.7-9.3); NEUTROPHILS # (AUTO) 6.4 K/uL (1.8-7.7); NEUTROPHILS % (AUTO) 82.6 % (42.2-75.2); PLATELET COUNT (AUTO) 178 K/uL (140-450); RED BLOOD CELL COUNT(AUTO) 2.68 MIL/uL (4.20-6.10); RED CELL DISTRIBUTION WIDTH 15.4 % (11.6-13.7); WHITE BLOOD COUNT (AUTO) 7.7 K/uL (4.8-10.8)
--- NOTE | 2017-07-03 21:03 | NUR ---
PATIENT LEFT WITHOUT BEING SEEN BY DR. isidro. NO FURTHER CARE PROVIDED FOR PATIENT.
--- NOTE | 2017-07-03 22:08 | NUR ---
PT TAKEN TO BED 7
--- NOTE | 2017-07-03 22:10 | NUR ---
PATIENT PRESENTS TO ED WITH DIARRHEA, N/V , ABD PAIN, FOR 2 DAYS , HEADACHE, SWOLLEN FACE .SKIN IS PINK/WARM/DRY; AAOX4 , AMBULATORY WITH CANE; PATIENT STATES PAIN OF 8/10 AT THIS TIME; VSS; PATIENT POSITIONED FOR COMFORT; HOB ELEVATED; BEDRAILS UP X2; BED DOWN. ER MD MADE AWARE OF PT STATUS.
--- NOTE | 2017-07-03 22:30 | NUR ---
CALLED SISTER OCTAVIA AT [phone] AND LEFT A VOICE MESSAGE TO PULP MAKER MESSAGE, NO RETURN CALL FROM THE SISTER.
--- NOTE | 2017-07-03 22:42 | NUR ---
Dr. Mckeon evaluating patient at bedside.
[2017-07-03] MEDS ORDERED: KETOROLAC 60 MG/2 ML VIAL IM ONE (22:45)
--- NOTE | 2017-07-03 23:50 | NUR ---
Unable to contact family to pick pt up to bring home. No answer at number provide for sister. Call to [employer] to go to residence to attempt to awake sisterGhazala.
--- NOTE | 2017-07-04 | NUR ---
[facility] called back. No answer at door of residence.
[2017-07-04 00:20] VITALS: BP 138/70
--- NOTE | 2017-07-04 00:20 | NUR ---
Patient discharged with v/s stable. Written and verbal after care instructions given and explained. Patient alert, oriented and verbalized understanding of instructions. Ambulatory with ASSISTIVE DEVICE CANE. All questions addressed prior to discharge. ID band removed. Patient advised to follow up with PMD. Rx of MOTRIN 600MG, ZOFRAN 8MG given. Patient educated on indication of medication including possible reaction and side effects. Opportunity to ask questions provided and answered. Addendum: 07/04/17 at 0534 by HILLARY PATIENT WAITING AT THE WAITING AREA. PROVIDED SNACK.
--- NOTE | 2017-07-04 03:43 | NUR ---
MARIYA RAMOS CALLED SISTER (OCTAVIA) [phone], LEFT VOICEMAIL IN [place]. PT STILL IN THE WAITING AREA. Addendum: 07/04/17 at 0537 by HILLARY CHARGE NURSE AWARE.
--- NOTE | 2017-07-04 05:30 | NUR ---
CALLED SISTER OCTAVIA AGAIN, WAS ABLE TO ANSWER THE PHONE, SHE SAID SHE'S COMING TO PICK HIM UP. CHARGE NURSE AWARE.
--- NOTE | 2017-07-04 05:53 | NUR ---
SISTER KOSTAS DUDLEY UP. Addendum: 07/04/17 at 0554 by HILLARY CHARGE NURSE MARILYN.
== END 2017-07-04 00:20 | disposition home or self-care (01) ==
LOC: MED 19:07
DX: R11.2 Nausea with vomiting, unspecified (principal); R51 Headache; R10.13 Epigastric pain; E11.9 Type 2 diabetes mellitus without complications; I10 Essential (primary) hypertension; Z79.82 Long term (current) use of aspirin; Z89.429 Acquired absence of other toe(s), unspecified side
CPT/HCPCS: 36415; 74176; 80053; 81001; 83690; 85025; 96372; 99285; J1885

== ENCOUNTER 2017-07-06 16:55 | Inpatient (IN) | payer SELFPAY ==
[~2017-07-06] VITALS: Ht 170.2 cm; Wt 63.0 kg
[2017-07-06 17:43] VITALS: BP 106/68
[2017-07-06] MEDS ORDERED: NACL 0.9% 500 ML IV ONE ×2 (19:43)
[2017-07-06] MEDS ORDERED: ONDANSETRON 4 MG/2 ML VIAL IVP ONE (19:45)
[2017-07-06] MEDS ORDERED: KETOROLAC 30 MG/ML VIAL IVP ONE (19:45)
[2017-07-06 20:18] LABS: BASOPHILS # (AUTO) 0.1 K/uL (0.00-0.22); BASOPHILS % (AUTO) 1.3 % (0.0-2.0); EOSINOPHILS # (AUTO) 0.1 K/uL (0-0.4); EOSINOPHILS % (AUTO) 2.3 % (0.0-4.0); HEMATOCRIT 23.6 % (36-52); HEMOGLOBIN 7.7 g/dL (12.0-18.0); LYMPHOCYTES # (AUTO) 0.5 K/uL (2.0-11.5); LYMPHOCYTES % (AUTO) 11.8 % (20.5-51.1); MEAN CORPUSCULAR HEMOGLOBIN 28 pg (27-31); MEAN CORPUSCULAR HGB CONC 33 g/dL (33-37); MEAN CORPUSCULAR VOLUME 86 fL (80-94); MONOCYTES # (AUTO) 0.3 K/uL (0.8-1.0); MONOCYTES % (AUTO) 6.7 % (1.7-9.3); NEUTROPHILS # (AUTO) 3.5 K/uL (1.8-7.7); NEUTROPHILS % (AUTO) 77.9 % (42.2-75.2); PLATELET COUNT (AUTO) 150 K/uL (140-450); RED BLOOD CELL COUNT(AUTO) 2.75 MIL/uL (4.20-6.10); RED CELL DISTRIBUTION WIDTH 14.8 % (11.6-13.7); WHITE BLOOD COUNT (AUTO) 4.5 K/uL (4.8-10.8)
[2017-07-06 20:40] LABS: ACETONE, SERUM NEGATIVE (NEGATIVE)
[2017-07-06 20:58] LABS: ALBUMIN 2.9 g/dL (3.4-5.0); ANION GAP 16.8 (8-16); ASPARTATE AMINOTRANSFERASE 19 U/L (15-37); CHLORIDE 99 mmol/L (98-107); CREATININE 2.4 mg/dL (0.7-1.3); GFR ARICAN-AMERICAN 38 mL/min (>90); POTASSIUM 4.8 mmol/L (3.5-5.1); SODIUM SERUM 130 mmol/L (136-145); TOTAL BILIRUBIN 0.5 mg/dL (0.0-1.0); UREA NITROGEN, BLOOD 50 mg/dL (7-18)
[2017-07-06 21:00] LABS: GLUCOSE 613 mg/dL (74-106)
[2017-07-06] MEDS ORDERED: INSULIN HUMAN REGULAR 100 UNITS/ML 10 ML VIAL IVP ONE (21:00)
[2017-07-06] MEDS ORDERED: ONDANSETRON 4 MG/2 ML VIAL IM/IVP PRN (21:25)
[2017-07-06] MEDS ORDERED: DOCUSATE SODIUM 100 MG GELCAP PO PRN (21:25)
[2017-07-06] MEDS ORDERED: ACETAMINOPHEN 325 MG TAB PO PRN (21:25)
[2017-07-06] MEDS ORDERED: HYDROcodone/APAP 7.5/325 MG 1 TAB PO PRN (21:25)
[2017-07-06] MEDS ORDERED: MORPHINE SULFATE 2 MG/ML SYR IVP PRN (21:25)
[2017-07-06 22:00] VITALS: BP 164/97
[2017-07-06 22:16] LABS: MAGNESIUM 2.2 mg/dL (1.8-2.4); PHOSPHORUS 5.7 mg/dL (2.5-4.9); THYROID STIMULATING HORMONE 1.09 uIU/mL (0.34-3.74)
[2017-07-06] MEDS: NACL 0.9% 1,000 ML IV SCH (22:30)
[2017-07-07 04:00] VITALS: BP 153/90
[2017-07-07] MEDS: INSULIN LISPRO SLIDING SCALE 100 UNITS/ML VIAL SUBQ PRN ×3 (05:58→17:56)
[2017-07-07] MEDS: BLOOD GLUCOSE MONITORING 1 DEV DEV FS SCH ×4 (06:04→22:13)
[2017-07-07 06:41] LABS: BASOPHILS # (AUTO) 0.1 K/uL (0.00-0.22); EOSINOPHILS # (AUTO) 0.3 K/uL (0-0.4); EOSINOPHILS % (AUTO) 2.9 % (0.0-4.0); HEMATOCRIT 26.2 % (36-52); HEMOGLOBIN 8.7 g/dL (12.0-18.0); LYMPHOCYTES # (AUTO) 1.1 K/uL (2.0-11.5); LYMPHOCYTES % (AUTO) 12.1 % (20.5-51.1); MEAN CORPUSCULAR HEMOGLOBIN 29 pg (27-31); MEAN CORPUSCULAR HGB CONC 33 g/dL (33-37); MEAN CORPUSCULAR VOLUME 86 fL (80-94); MONOCYTES # (AUTO) 0.4 K/uL (0.8-1.0); MONOCYTES % (AUTO) 4.9 % (1.7-9.3); NEUTROPHILS # (AUTO) 7.2 K/uL (1.8-7.7); NEUTROPHILS % (AUTO) 79.1 % (42.2-75.2); PLATELET COUNT (AUTO) 189 K/uL (140-450); RED BLOOD CELL COUNT(AUTO) 3.04 MIL/uL (4.20-6.10); RED CELL DISTRIBUTION WIDTH 14.9 % (11.6-13.7); WHITE BLOOD COUNT (AUTO) 9.1 K/uL (4.8-10.8)
[2017-07-07 07:22] LABS: ANION GAP 21.4 (8-16); CREATININE 2.3 mg/dL (0.7-1.3); POTASSIUM 4.4 mmol/L (3.5-5.1)
[2017-07-07 07:24] LABS: MAGNESIUM 2.1 mg/dL (1.8-2.4); PHOSPHORUS 5.6 mg/dL (2.5-4.9)
[2017-07-07 08:00] VITALS: BP 124/72
[2017-07-07] MEDS ORDERED: NON-FORMULARY ITEM (Lisinopril 1 TAB) PO SCH (09:00)
[2017-07-07] MEDS: ASPIRIN 81 MG TAB.CHEW PO SCH (09:14)
[2017-07-07] MEDS: LISINOPRIL 20 MG TAB PO SCH (09:14)
[2017-07-07] MEDS: SERTRALINE 50 MG TAB PO SCH (09:15)
[2017-07-07] MEDS: CALCIUM CARB/VIT-D 500 MG/200 IU 1 TAB PO SCH ×2 (09:15→22:14)
[2017-07-07] MEDS: amLODIPine 5 MG TAB PO SCH (09:15)
[2017-07-07] MEDS: INSULIN DETEMIR 100 UNITS/ML 10 ML VIAL SUBQ SCH (09:19)
[2017-07-07] MEDS ORDERED: METOCLOPRAMIDE 10 MG TAB PO PRN (09:50)
[2017-07-07] MEDS ORDERED: CALCIUM ACETATE 667 MG TAB PO SCH ×2 (09:55)
[2017-07-07] MEDS: FERRIC GLUCONATE 125 MG in NACL 0.9% 100 ML IV SCH (10:19)
[2017-07-07] MEDS ORDERED: HYDROcodone/APAP 7.5/325 MG 1 TAB PO PRN (10:20)
[2017-07-07] MEDS ORDERED: MORPHINE SULFATE 2 MG/ML SYR IVP PRN (10:20)
[2017-07-07] MEDS ORDERED: HYDRAGUARD CREAM TP PRN ×2 (11:00)
[2017-07-07] MEDS ORDERED: INSULIN LISPRO 100 UNITS/ML VIAL SUBQ SCH (11:20)
[2017-07-07 12:00] VITALS: BP 133/83
[2017-07-07] MEDS: NACL 0.9% 1,000 ML IV SCH ×3 (12:15→22:48)
[2017-07-07 16:00] VITALS: BP 140/89
[2017-07-07] MEDS ORDERED: ATORVASTATIN 20 MG TAB PO SCH (21:00)
[2017-07-08] VITALS: BP 134/85
[2017-07-08] MEDS: NACL 0.9% 1,000 ML IV SCH (04:15)
[2017-07-08 06:10] LABS: BASOPHILS # (AUTO) 0.1 K/uL (0.00-0.22); BASOPHILS % (AUTO) 0.9 % (0.0-2.0); EOSINOPHILS # (AUTO) 0.8 K/uL (0-0.4); EOSINOPHILS % (AUTO) 9.2 % (0.0-4.0); HEMATOCRIT 25.4 % (36-52); HEMOGLOBIN 8.5 g/dL (12.0-18.0); LYMPHOCYTES # (AUTO) 1.2 K/uL (2.0-11.5); LYMPHOCYTES % (AUTO) 13.9 % (20.5-51.1); MEAN CORPUSCULAR HEMOGLOBIN 29 pg (27-31); MEAN CORPUSCULAR HGB CONC 33 g/dL (33-37); MEAN CORPUSCULAR VOLUME 87 fL (80-94); MONOCYTES # (AUTO) 0.5 K/uL (0.8-1.0); MONOCYTES % (AUTO) 5.3 % (1.7-9.3); NEUTROPHILS # (AUTO) 6.1 K/uL (1.8-7.7); NEUTROPHILS % (AUTO) 70.7 % (42.2-75.2); PLATELET COUNT (AUTO) 186 K/uL (140-450); RED BLOOD CELL COUNT(AUTO) 2.93 MIL/uL (4.20-6.10); RED CELL DISTRIBUTION WIDTH 15.1 % (11.6-13.7); WHITE BLOOD COUNT (AUTO) 8.7 K/uL (4.8-10.8)
[2017-07-08] MEDS: BLOOD GLUCOSE MONITORING 1 DEV DEV FS SCH ×2 (06:18→12:06)
[2017-07-08 06:48] LABS: ANION GAP 12.9 (8-16); CARBON DIOXIDE 21.3 mmol/L (21-32); CREATININE 1.5 mg/dL (0.7-1.3); POTASSIUM 3.2 mmol/L (3.5-5.1)
[2017-07-08 07:00] LABS: MAGNESIUM 1.8 mg/dL (1.8-2.4); PHOSPHORUS 4.2 mg/dL (2.5-4.9)
[2017-07-08 08:00] VITALS: BP 128/77
[2017-07-08] MEDS ORDERED: ACETAMINOPHEN 325 MG TAB PO PRN (09:50)
[2017-07-08] MEDS: LISINOPRIL 20 MG TAB PO SCH (09:53)
[2017-07-08] MEDS: ASPIRIN 81 MG TAB.CHEW PO SCH (09:54)
[2017-07-08] MEDS: amLODIPine 5 MG TAB PO SCH (09:54)
[2017-07-08] MEDS: SERTRALINE 50 MG TAB PO SCH (09:54)
[2017-07-08] MEDS: CALCIUM CARB/VIT-D 500 MG/200 IU 1 TAB PO SCH (09:54)
[2017-07-08] MEDS: INSULIN DETEMIR 100 UNITS/ML 10 ML VIAL SUBQ SCH (09:58)
[2017-07-08] MEDS: FERRIC GLUCONATE 125 MG in NACL 0.9% 100 ML IV SCH (11:00)
[2017-07-08] MEDS: INSULIN LISPRO SLIDING SCALE 100 UNITS/ML VIAL SUBQ PRN (12:40)
[2017-07-08] MEDS ORDERED: ZINC30OI TP (13:11)
[2017-07-08] MEDS ORDERED: POTASSIUM CHLORIDE 10 MEQ TABER PO SCH (13:23)
[2017-07-08] MEDS ORDERED: METF1000 PO (13:41)
[2017-07-10 08:58] LABS: T4 (THYROXINE) 6.3 ug/dL (4.5 - 12.0)
[2017-07-10 09:23] LABS: FERRITIN 183 ng/mL (30 - 400)
[2017-07-11 11:33] LABS: FOLIC ACID > 20.00 ng/mL (>3.0); TRANSFERRIN 210 mg/dL (200-370)
== END 2017-07-08 18:00 | disposition home or self-care (01) | DRG 73 ==
LOC: MED 16:55 → MTU 21:29 → UNDOADMIN 21:29 → MTU 21:51 → OBSVTOIN 07-08 08:46
PROVIDERS: ADMIT Family Medicine; ATTEND Family Medicine
DX: E11.43 Type 2 diabetes mellitus with diabetic autonomic (poly)neuropathy (principal); K31.84 Gastroparesis; N17.0 Acute kidney failure with tubular necrosis; E43 Unspecified severe protein-calorie malnutrition; E87.1 Hypo-osmolality and hyponatremia; A04.7 Enterocolitis due to Clostridium difficile; E11.00 Type 2 diabetes mellitus with hyperosmolarity without nonketotic hyperglycemic-hyperosmolar coma (NKHHC); E11.51 Type 2 diabetes mellitus with diabetic peripheral angiopathy without gangrene; E11.65 Type 2 diabetes mellitus with hyperglycemia; E83.39 Other disorders of phosphorus metabolism; F32.9 Major depressive disorder, single episode, unspecified; E83.51 Hypocalcemia; I10 Essential (primary) hypertension; D64.9 Anemia, unspecified; Z68.21 Body mass index [BMI] 21.0-21.9, adult; Z89.431 Acquired absence of right foot; Z89.422 Acquired absence of other left toe(s)
CPT/HCPCS: 36415; 71010; 80048; 80053; 82009; 82607; 82728; 82746; 82948; 83036; 83540; 83605; 83735; 83880; 84100; 84436; 84443; 84479; 85025; 85045; 87040; 87070; 87081; 93005; 96361; 96374; 96375; 99285; G0378; J1815; J1885; J2270; J2405; J2916; J7030; Q0092

== ENCOUNTER 2017-11-07 19:26 | Emergency (ER) | payer SELFPAY ==
[~2017-11-07] VITALS: Ht 165.1 cm; Wt 81.6 kg
[~2017-11-07 19:26] MED LIST changes: -ASPI81CT27 PO; +ASPI81CT95 PO; -CALC-602 PO; +CALC-846 PO; -LEVEMIR SUBQ; +METF1000 PO; +ZINC30OI TP
[2017-11-07 20:04] VITALS: BP 137/82
--- NOTE | 2017-11-07 20:08 | NUR ---
TO LOBBY, PELON, VSS, A/W FOR BED, ALISSA NOTED
--- NOTE | 2017-11-07 23:37 | NUR ---
PT TAKEN TO OVERFLOW 1.
--- NOTE | 2017-11-07 23:44 | NUR ---
42/M c/o body aches x1 day. AOX4, ambulatory with steady gait. VSS. No distress noted.
--- NOTE | 2017-11-08 00:04 | NUR ---
Patient being evaluated by Dr. Rolon in overflow.
[2017-11-08] MEDS ORDERED: KETOROLAC 60 MG/2 ML VIAL IM ONE (00:15)
[2017-11-08 00:31] VITALS: BP 163/97
== END 2017-11-08 00:31 | disposition home or self-care (01) ==
LOC: MED 19:26
DX: M54.5 Low back pain (principal); E11.9 Type 2 diabetes mellitus without complications; I10 Essential (primary) hypertension; E78.00 Pure hypercholesterolemia, unspecified; Z79.84 Long term (current) use of oral hypoglycemic drugs; Z79.82 Long term (current) use of aspirin; Z79.899 Other long term (current) drug therapy
CPT/HCPCS: 96372; 99283; J1885

== ENCOUNTER 2017-11-20 10:41 | Inpatient (IN) | payer SELFPAY ==
[2017-11-20] VITALS (14 sets, daily range): BP systolic 43–149; BP diastolic 19–87
[~2017-11-20] VITALS: Ht 177.8 cm; Wt 83.0 kg
[2017-11-20] MEDS ORDERED: NACL 0.9% 1,000 ML IV ONE ×2 (10:55→12:30)
--- NOTE | 2017-11-20 11:41 | NUR ---
PATIENT BIBA DUE TO DIZZINESS . DENIES ANY SOB /CP AT THIS TIME;DENIES N/V/D; SKIN IS PINK/WARM/DRY; AAOX4;LUNGS CLEAR BL; HR EVEN AND REGULAR; PATIENT STATES PAIN OF 0/10 AT THIS TIME; PATIENT POSITIONED FOR COMFORT; HOB ELEVATED; BEDRAILS UP X2; BED DOWN. ER MD NOTIFIED;
[2017-11-20 11:52] LABS: PROTHROMBIN TIME 12.7 secs (10.8-13.4)
[2017-11-20 11:59] LABS: ANION GAP 27.1 (8-16); CARBON DIOXIDE 10.6 mmol/L (21-32); TOTAL BILIRUBIN 0.2 mg/dL (0.0-1.0)
[2017-11-20 12:09] LABS: HEMATOCRIT 25.1 % (36-52); MEAN CORPUSCULAR HEMOGLOBIN 27 pg (27-31); MEAN CORPUSCULAR HGB CONC 32 g/dL (33-37); MEAN CORPUSCULAR VOLUME 85 fL (80-94); PLATELET COUNT (AUTO) 161 K/uL (140-450); RED BLOOD CELL COUNT(AUTO) 2.96 MIL/uL (4.20-6.10); RED CELL DISTRIBUTION WIDTH 13.6 % (11.6-13.7); WHITE BLOOD COUNT (AUTO) 6.3 K/uL (4.8-10.8)
[2017-11-20 12:21] LABS: LYMPHOCYTES % (MANUAL) 8 % (20-46); MONOCYTES % (MANUAL) 2 % (5-12)
[2017-11-20 12:30] LABS: CREATININE 4.3 mg/dL (0.7-1.3); POTASSIUM 5.7 mmol/L (3.5-5.1)
[2017-11-20] MEDS ORDERED: SODIUM POLYSTYRENE 15 GM/60 ML UDBTL PO ONE (12:30)
[2017-11-20] MEDS ORDERED: INSULIN HUMAN REGULAR 100 UNITS/ML 10 ML VIAL IVP ONE (12:30)
[2017-11-20] MEDS ORDERED: NACL 0.45% 1,000 ML IV ONE (12:30)
[2017-11-20] MEDS ORDERED: INSULIN HUMAN REGULAR 100 UNITS in NACL 0.9% 100 ML IV ONE (12:30)
[2017-11-20] MEDS ORDERED: SODIUM BICARBONATE 8.4% PFS 50 MEQ/50 ML SYR IVP ONE ×3 (12:30→17:40)
[2017-11-20] MEDS ORDERED: ONDANSETRON 4 MG/2 ML VIAL IVP PRN (13:05)
[2017-11-20] MEDS ORDERED: HYDROcodone/APAP 7.5/325 MG 1 TAB PO PRN (13:05)
[2017-11-20] MEDS ORDERED: NACL 0.9% 1,000 ML IV SCH ×2 (13:05→13:25)
[2017-11-20] MEDS ORDERED: ACETAMINOPHEN 325 MG TAB PO PRN (13:05)
--- NOTE | 2017-11-20 13:33 | NUR ---
XRAY AT BEDSIDE
[2017-11-20] MEDS: BLOOD GLUCOSE MONITORING 1 DEV DEV FS SCH ×5 (14:30→23:17)
--- NOTE | 2017-11-20 14:33 | NUR ---
Patient will be admitted to care of DR ROWELL. Admited to ICU. Will go to room2. Belongings list completed. Report to MARIYA SAGE.
--- NOTE | 2017-11-20 14:40 | NUR ---
SEEN BY DR. BENAVIDES AT BEDSIDE.
[2017-11-20 14:51] LABS: CHOL/HDL RATIO 2.8 (1-4.5); FREE T4 (FREE THYROXINE) 0.97 ng/dL (0.76-1.46); MAGNESIUM 2.3 mg/dL (1.8-2.4); PHOSPHORUS 7.4 mg/dL (2.5-4.9); THYROID STIMULATING HORMONE 11.93 uIU/mL (0.34-3.74)
[2017-11-20] MEDS ORDERED: FUROSEMIDE 20 MG/2 ML VIAL IVP SCH (14:58)
--- NOTE | 2017-11-20 15:00 | NUR ---
TO X-RAY FOR CT SCAN OF HEAD.
[2017-11-20 15:18] LABS: APPEARANCE,URINE CLEAR (CLEAR); BILIRUBIN,URINE 1+ (NEGATIVE); BLOOD, URINE 3+ (NEGATIVE); COLOR,URINE YELLOW (YELLOW); LEUKOCYTE ESTERASE ,URINE NEGATIVE (NEGATIVE); NITRITE, URINE NEGATIVE (NEGATIVE); UGLUCOSE 3+ (NEGATIVE)
[2017-11-20 15:25] LABS: BARBITURATE, URINE NEG. ng/ml (NEG <=200); BENZODIAZEPINE, URINE NEG. ng/mL (NEG <=200); CANNABINOID, URINE NEG. ng/mL (NEG <=50); COCAINE, URINE NEG. ng/mL (NEG <=300); OPIATE, URINE NEG. ng/mL (NEG <=2000); PHENCYCLIDINE SCREEN,URINE NEG. ng/mL (NEG <=25)
--- NOTE | 2017-11-20 15:30 | NUR ---
blood glucose higher than accue check can moniter.
--- NOTE | 2017-11-20 15:35 | NUR ---
since unable to get blood glucose from finger stick glucose from blood drowing is 1009 dr Flynn aware
[2017-11-20] MEDS: LORazepam 2 MG/ML VIAL IVP PRN ×2 (15:55→21:30)
--- NOTE | 2017-11-20 16:00 | NUR ---
DR. AMBRIZ INSERT CENTRAL LINE THAT SIGN BY 2 PHYSICIAN FOR MEDICAL NECESSITY PT,IS RESTLESS AND CONFUSE AT THE TIME.
[2017-11-20 16:15] LABS: ANION GAP 23.6 (8-16); CARBON DIOXIDE 13.3 mmol/L (21-32); POTASSIUM 4.9 mmol/L (3.5-5.1)
[2017-11-20] MEDS ORDERED: ETOMIDATE 20 MG/10 ML VIAL IVP ONE (16:30)
[2017-11-20 16:37] LABS: CREATININE 4.3 mg/dL (0.7-1.3)
--- NOTE | 2017-11-20 16:38 | NUR ---
RECIEVED RESULTS FROM LAB, GLUCOSE 1009, BUN 83, CREATININE 4.3, DR. AMBRIZ NOTIFIED.
[2017-11-20 16:39] LABS: RBC,URINE 0-5 (RARE) /HPF (0-5); WBC,URINE 0-5 (RARE) /HPF (0-5); YEAST,URINE Few /HPF (None Seen)
[2017-11-20] MEDS ORDERED: DOPamine 400 MG/D5W PREMIX 250 ML IV ONE (16:46)
--- NOTE | 2017-11-20 17:02 | NUR ---
G REPORTED TO DR PB DAVIS
[2017-11-20] MEDS ORDERED: INSULIN HUMAN REGULAR 100 UNITS/ML 10 ML VIAL SUBQ ONE (17:05)
[2017-11-20] MEDS ORDERED: SODIUM BICARBONATE 8.4% 50 MEQ in DEXTROSE 5% 1,000 ML IV SCH (17:10)
--- NOTE | 2017-11-20 17:45 | NUR ---
10UNIT OF REG. INSULIN SUBQ GAVE ORDER OF DR. AMBRIZ.
[2017-11-20] MEDS ORDERED: LEVOFLOXACIN 750 MG/D5W PREMIX 150 ML IV ONE (18:00)
[2017-11-20] MEDS ORDERED: FLUCONAZOLE 100 MG TAB PO ONE (18:00)
[2017-11-20] MEDS: NACL 0.9% 1,000 ML IV SCH ×2 (18:50→23:19)
[2017-11-20] MEDS ORDERED: FLUCONAZOLE 200 MG/NS PREMIX 100 ML IV ONE (19:10)
--- NOTE | 2017-11-20 19:30 | NUR ---
PT STILL RESTLESS . BLOOD GLUCOSE HIGHER THAN ACCUE CHEK CAN MONITER BILL BYRD AWARE. REPORT GIVE TO EVA. MERAZ.
--- NOTE | 2017-11-20 19:30 | NUR ---
RECEIVED PT FROM AM SHIFT. PT IS DROWSY,RESTLESS,TRYING TO OPEN EYES WHEN CALLING HIS NAME,PT WITHDRAW WITH PAIN. PT ON O2 VIA NASAL CANULA AT 2 LPM [place] WE[place]. TACHYPNEA NOTED. O2 SAT 98%. HOB UP 30-45 DEGREE. LUNGS SOUND CLEAR. CENTRAL LINE TO RIGHT IJ. BLEEDING FROM AREA. ICE PACK PLACE ON THE SITE. MD AWARE THAT STILL BLEEDING ON THE SITE.LEFT AC NO 20 GAUGE. PT ON INSULIN DRIPS AT 8.2 UNITS/HR. PT ALSO ON DOPAMIN DRIPS AT 4.99 MCG/KG/MIN. NS AT 250 CC/HR. PER AM SHIFT BLOOD SUGAR WAS 1009.REDNESS NOTED TO PERINEAL AREA AND R/L BUTTOCK . EDEMA NOTED TO BLE +3 PITTING. EDEMA TO LEFT UPPER ARM +2 PITTING. REDNESS ON LEFT UPPER ARM.MULTIPLE DISCOLORATION TO LEFT UPPER EXTREMITY.. ELEVATED AREA WITH PILLOWS. SOFT WRIST RESTRAIN IN [place] WRIST D/T RESTLESS ANDF TRYING TO PULLING TUBING. RELEASE EVERY 2 HRS FOR 15 MINUTES AND DURING CARE. SKIN INTACT ON BOTH WRIST/HAND.F/C INTACT WITH YELLOW CLEAR URINE NOTED. GENTLE CARE GIVEN .KEPT CLEAN AND DRY.CALL LIGHT IN REACH.
[2017-11-20] MEDS: CLINDAMYCIN 600 MG in DEXTROSE 5% 50 ML IV SCH ×2 (19:31→23:18)
--- NOTE | 2017-11-20 20:05 | NUR ---
BLOOD SUGAR IS 530. DR FUNMI MCDOWELL MADE AWARE AND PER MD TO CONTINUE INSULIN DRIPS AT 8.2 UNITS/HR.
[2017-11-20] MEDS: FUROSEMIDE 20 MG/2 ML VIAL IVP SCH (21:00)
[2017-11-20] MEDS: DOCUSATE SODIUM 100 MG GELCAP PO SCH (21:00)
[2017-11-20] MEDS: NYSTATIN/TRIAMCINOLONE CRM 15 GM TUBE TP SCH (21:00)
[2017-11-20] MEDS: LORazepam 1 MG TAB PO SCH (21:00)
--- NOTE | 2017-11-20 21:05 | NUR ---
BLOOD SUGAR CHECK IS [address] JULY CHOUDHARY MADE AWARE CONTINUE INSULIN DRIPS AT 8.2 UNITS/HR
[2017-11-20 21:11] LABS: ANION GAP 22.3 (8-16); POTASSIUM 4.3 mmol/L (3.5-5.1)
[2017-11-20 21:16] LABS: MAGNESIUM 2.3 mg/dL (1.8-2.4); PHOSPHORUS 6.7 mg/dL (2.5-4.9)
[2017-11-20 21:25] LABS: CREATININE 4.5 mg/dL (0.7-1.3)
--- NOTE | 2017-11-20 21:30 | NUR ---
PT WITH EPISODE OF RESTLESS,TRYING TO REMOVE THE LINES ,KEPT TRASHING ON THE BED. AWARE. PER MD MAY GIVE ATIVAN 2 MG IVP SLOWLY PRN. MED GIVEN PER ORDER,
[2017-11-20] MEDS: INSULIN HUMAN REGULAR 100 UNITS in NACL 0.9% 100 ML IV SCH (22:01)
--- NOTE | 2017-11-20 22:05 | NUR ---
BLOOD SUGAR IS [address]ERIKA CHOUDHARY MADE AWARE AND CONT INSULIN DRIPS AT 8.2 UNITS/HR
--- NOTE | 2017-11-20 23:05 | NUR ---
BLOOD SUGAR IS 399 CONTINUE SAME DOSE OF INSULIN DRIPS AT 8.2 UNITS/HR.
[2017-11-20 23:08] LABS: MAGNESIUM 2.3 mg/dL (1.8-2.4); PHOSPHORUS 7.4 mg/dL (2.5-4.9)
[2017-11-21] VITALS (42 sets, daily range): BP systolic 6–158; BP diastolic 47–108
--- NOTE | 2017-11-21 00:10 | NUR ---
BLOOD SUGAR IS [address] CHOUDHARY AWARE PER MD CONTINUE 8.2 UNITS UNTIL BS BELOW 200
--- NOTE | 2017-11-21 00:30 | NUR ---
BLOOD SUGAR IS 339 DR FUNMI MCDOWELL AWARE PER MD TO KEPT THE INSULIN DRIPS 8.2 UNITS/HR AT THIS TIME. ALSO PER MD TO D/C DOPAMIN DRIPS AT THIS TIME.
--- NOTE | 2017-11-21 00:30 | NUR ---
PT SLEPT WELL EASY TO AWAKE. REPOSITION PT TO RIGHT LATERAL HAR[place] WELL.
[2017-11-21] MEDS: BLOOD GLUCOSE MONITORING 1 DEV DEV FS SCH ×24 (00:44→23:25)
[2017-11-21 01:52] LABS: MAGNESIUM 2.3 mg/dL (1.8-2.4)
[2017-11-21 01:57] LABS: CARBON DIOXIDE 15.3 mmol/L (21-32); POTASSIUM 4.3 mmol/L (3.5-5.1)
[2017-11-21 02:22] LABS: CREATININE 4.3 mg/dL (0.7-1.3)
[2017-11-21] MEDS: NACL 0.9% 1,000 ML IV SCH (02:55)
[2017-11-21 04:17] LABS: HEMATOCRIT 21.6 % (36-52); HEMOGLOBIN 7.2 g/dL (12.0-18.0); MEAN CORPUSCULAR HEMOGLOBIN 27 pg (27-31); MEAN CORPUSCULAR HGB CONC 33 g/dL (33-37); MEAN CORPUSCULAR VOLUME 83 fL (80-94); PLATELET COUNT (AUTO) 170 K/uL (140-450); RED BLOOD CELL COUNT(AUTO) 2.62 MIL/uL (4.20-6.10); RED CELL DISTRIBUTION WIDTH 13.2 % (11.6-13.7); WHITE BLOOD COUNT (AUTO) 6.7 K/uL (4.8-10.8)
--- NOTE | 2017-11-21 04:21 | NUR ---
BLOOD SUGAR 208 PER CONT THE INSULIN DRIPS 8.2 UNITS UNTIL BLOOD SUGAR BELOW 200.
[2017-11-21 04:32] LABS: ANION GAP 19.8 (8-16); CARBON DIOXIDE 17.3 mmol/L (21-32); POTASSIUM 4.1 mmol/L (3.5-5.1)
[2017-11-21 04:33] LABS: MAGNESIUM 2.1 mg/dL (1.8-2.4); PHOSPHORUS 6.6 mg/dL (2.5-4.9)
[2017-11-21] MEDS: LORazepam 1 MG TAB PO SCH ×3 (05:00→21:00)
--- NOTE | 2017-11-21 05:00 | NUR ---
AM CARE GIVEN. PT HAS LARGE BM X1 WATERY. GOOD DEL CARE GIVEN KEPT CLEAN AND DRY.
[2017-11-21 05:02] LABS: CREATININE 4.2 mg/dL (0.7-1.3)
--- NOTE | 2017-11-21 05:15 | NUR ---
BLOOD SUGAR IS 149. DR CHOUDHARY AWARE. PER MD TO PUT DOWN INSULIN DRIP TO 4 UNITS/HR.
[2017-11-21] MEDS ORDERED: DEXT 5% / NACL 0.45% 1,000 ML IV SCH (05:25)
[2017-11-21] MEDS ORDERED: NACL 0.9% 1,000 ML IV ONE (06:05)
--- NOTE | 2017-11-21 06:25 | NUR ---
PER TO START DOPAMINE AT 5 MCG/KG/MIN. BP IS LOW 56/37 HR 53.
[2017-11-21] MEDS ORDERED: DOPamine 400 MG/D5W PREMIX 250 ML IV ONE (06:36)
[2017-11-21] MEDS: CLINDAMYCIN 600 MG in DEXTROSE 5% 50 ML IV SCH ×3 (06:42→18:14)
--- NOTE | 2017-11-21 06:47 | NUR ---
PER VALERIE TO INCREASE DOPAMINE TO 15 MCG/KG/MIN
[2017-11-21] MEDS ORDERED: NOREPINEPHRINE 8 MG in DEXTROSE 5% 250 ML IV PRN (06:50)
--- NOTE | 2017-11-21 07:00 | NUR ---
PER PT WILL BE INTUBATE. PREPARE PT FOR INTUBATION. RT MADE AWARE.
--- NOTE | 2017-11-21 07:20 | NUR ---
REPORT GIVEN TO AM SHIFT. MADE AWARE PT IS READY TO INTUBATE BY DR. PADILLA AND ER .RT ALREADY IN BED SITE. MORNING CHARGE NURSE READY TO ASSIST THE PROCEDURE.
--- NOTE | 2017-11-21 07:20 | NUR ---
0720 CALLED TO ICU BED 2 DR VALERIE HERNANDEZ PT INTUBATED AT THIS TIME DR LLANES FROM ER INTUBATED PT WITH 7.5 ETT 25 AT GUM LINE BREATH SOUNDS PRESENT BILAT SECURED ETT XRAY CALLED FOR PT SXN FOR SPUTUM SENT TO LAB VENT PLUGGED INTO RED OUTLET ANBU BAG AT BEDSIDE Addendum: 11/21/17 at 1052 by Rizwan Funes RT PT PLACED ON VENT WITH SETTINGS CHARTED
[2017-11-21] MEDS ORDERED: DIAZEPAM PFS 10 MG/2 ML SYR ONE (07:23)
[2017-11-21] MEDS ORDERED: DIAZEPAM PFS 10 MG/2 ML SYR IVP SCH (07:40)
[2017-11-21] MEDS ORDERED: ETOMIDATE 20 MG/10 ML VIAL IVP SCH (07:40)
[2017-11-21] MEDS ORDERED: SUCCINYLCHOLINE CHLORIDE 200 MG/10 ML VIAL IVP SCH (07:41)
[2017-11-21 07:45] LABS: EOSINOPHILS % (MANUAL) 5 % (0-4); LYMPHOCYTES % (MANUAL) 11 % (20-46); MONOCYTES % (MANUAL) 2 % (5-12)
[2017-11-21] MEDS ORDERED: SODIUM BICARBONATE 8.4% PFS 50 MEQ/50 ML SYR IVP SCH (07:51)
[2017-11-21] MEDS: CALCIUM ACETATE 667 MG TAB PO SCH ×2 (08:00→17:02)
[2017-11-21] MEDS: ALBUTEROL SULFATE/IPRATROPIU 3 ML SOL IH PRN (08:00)
[2017-11-21] MEDS ORDERED: CALCIUM ACETATE 667 MG TAB PO SCH (08:00)
--- NOTE | 2017-11-21 08:00 | NUR ---
INITIAL SHIFT ASSESSMENT DONE. SEDATED BUT EASILY AROUSABLE. DOES NOT FOLLOW COMMAND. NO SIGNS OF PAIN. OCCASIONAL AGITATION NOTED. ON VENTILATOR, TOLERATING CURRENT SETTINGS WELL. O2 SAT 96-98%. SR ON MONITOR. SBP IN 130'S. ON DOPAMINE DRIP FOR HR. HOB ELEVATED. UPDATED OF PLAN OF CARE. WILL CONTINUE TO MONITOR
--- NOTE | 2017-11-21 08:18 | NUR ---
PATIENT HAS BEEN SCREENED AND CATEGORIZED HIGH NUTRITION RISK. PATIENT WILL BE SEEN WITHIN 1-2 DAYS OF ADMISSION. 11/20/17-11/21/[address]
[2017-11-21] MEDS: PANTOPRAZOLE 40 MG INJ VIAL IVP SCH (08:46)
[2017-11-21] MEDS: FUROSEMIDE 20 MG/2 ML VIAL IVP SCH (08:47)
[2017-11-21] MEDS: DOCUSATE SODIUM 100 MG GELCAP PO SCH ×2 (09:00→21:00)
[2017-11-21] MEDS: NYSTATIN/TRIAMCINOLONE CRM 15 GM TUBE TP SCH ×2 (09:00→21:00)
[2017-11-21] MEDS: MIDAZOLAM MDV 50 MG in NACL 0.9% 40 ML IV PRN ×2 (09:22→17:30)
--- NOTE | 2017-11-21 09:30 | NUR ---
SR ON MONITOR. SBP IN 140'S. DOPAMINE DRIP DECREASE TO 10 MCG/KG/MIN. WILL CONTINUE TO MONITOR.
[2017-11-21] MEDS ORDERED: FUROSEMIDE 40 MG/4 ML VIAL IVP SCH ×2 (09:33→12:00)
[2017-11-21] MEDS: DEXTROSE 10% 1,000 ML IV SCH ×2 (09:43→20:52)
--- NOTE | 2017-11-21 09:45 | NUR ---
SR ON MONITOR. SBP IN 140'S. DOPAMINE DRIP DECREASE TO 5 MCG/KG/MIN. WILL CONTINUE TO MONITOR.
--- NOTE | 2017-11-21 10:00 | NUR ---
HAS BM AT THIS TIME, MODERATE AMOUNT, PASTY, AND GREENISH BROWN COLOR. GIVEN PARTIAL BATH AND LINENS ARE CHANGE. TOLERATED THE PROCEDURE WELL. CRANE RIGGER IS ALSO IN THE ROOM CHECKING THE PATIENT.
--- NOTE | 2017-11-21 10:15 | NUR ---
SR ON MONITOR. SBP IN 170. DOPAMINE DRIP TURN OFF. WILL CONTINUE TO MONITOR.
--- NOTE | 2017-11-21 10:45 | NUR ---
WOUND EVALUATION NOTE: REASON FOR WOUND EVALUATION: PERIANAL REDNESS COMPLETE SKIN ASSESSMENT DONE ON THIS 42 Y/O MALE PATIENT ADMITTED TO [facility], WITH INITIAL DIAGNOSIS OF WEAKNESS, "UNABLE TO READ BLOOD SUGAR". PAST MEDICAL HISTORY INCLUDE HTN, DM, HLD. ALL ABOVE INFORMATION OBTAINED FROM THE ADMISSION H&P. LABS ARE WBC 6.7, H/H 7.2/21.6, GLUCOSE 99, ALBUMIN 2.0. PT/INR 12.7/1.3 AND PTT 42.7. PATIENT IS SEDATED. SKIN WARM TO TOUCH, GENERAL EDEMA TO TRUNK AND ALL EXTREMITIES.TOENAILS ARE SLIGHTLY THICKENED, BLE WITH NO HAIR GROWTH AND DORSAL PEDAL PULSES PRESENT AND NORMAL. CAPILLARY REFILL <3 SEC. #16 FR F/C PATENT AND INTACT SMALL AMOUNT YELLOW COLOR URINE OUTPUT. INCONTINENT OF BOWEL. PLAN OF CARE DISCUSSED WITH PRIMARY RN. INTEGUMENTARY: L/R GROIN INTERTRIGO PERINEUM AND PERIANAL INCONTINENT ASSOCIATE DERMATITIS SACROCOCCYX - BLANCHABLE REDNESS BLE DRYNESS, SKIN INTACT RIGHT FOOT 3RD TOE AMPUTATION WITH OLD HEALED SURGICAL SCAR LEFT FOOT 5TH TOE AMPUTATION WITH OLD HEALED SURGICAL SCAR RIGHT PLANTAR 2 ABRASIONS WITH LARGEST MEASUREMENT 0.5X0.5 CM RECOMMENDATIONS: -PODIATRY CONSULT -PAINT RIGHT PLANTAR ABRASION AREAS WITH BETADINE SOLUTION QD AND LEAVE OPEN TO AIR -APPLY HYDRAGUARD TO SACRALCOCCYX AND BLE BID WC -CLEANSE GROINS WITH SOAP AND WATER, PAT DRY , APPLY ANTIFUNGAL CREAM BID WC AND LEAVE OPEN TO AIR -CLEANSE PERINEUM AND PERIANAL WITH SOAP AND WATER, PAT DRY , APPLY Z GUARD BID WC AND LEAVE OPEN TO AIR -TURN AND REPOSITION PATIENT Q2H -ASSESS AND MONITOR SKIN CONDITION DURING POSITION CHANGE -OFFLOAD BILATERAL HEELS BY PLACING PILLOWS UNDER CALVES AT ALL TIMES, UNLESS OTHERWISE CONTRAINDICATED-KEEP -KEEP SKIN CLEAN AND DRY AT ALL TIMES. -CONTINUE TO FOLLOW RD RECOMMENDATION COMORBIDITIES FOR WOUND HEALING: INFECTION, DM, HOB ELEVATED MAJORITY OF THE DAY FOR MEDICAL CONDITIONS RECOMMENDATIONS DISCUSSED WITH PRIMARY RN WILL FOLLOW UP PATIENT Q 7-10 DAYS AND PRN. PLEASE CONTACT WOUND CARE NURSE FOR ANY QUESTIONS AND CHANGES IN WOUND CONDITION.
[2017-11-21 11:21] LABS: ANION GAP 20.4 (8-16); CARBON DIOXIDE 16.9 mmol/L (21-32); POTASSIUM 4.3 mmol/L (3.5-5.1)
[2017-11-21 11:31] LABS: MAGNESIUM 2.2 mg/dL (1.8-2.4); PHOSPHORUS 6.3 mg/dL (2.5-4.9)
--- NOTE | 2017-11-21 12:00 | NUR ---
REASSESSMENT DONE. NEURO STATUS UNCHANGED. NO SIGNS OF PAIN. OCCASIONAL AGITATION NOTED. TOLERATING CURRENT VENTILATOR SETTINGS WELL. O2 SAT 98-99%. SB ON MONITOR. SBP IN 100'S-140'S. NO ECTOPY NOTED. HOB ELEVATED. UPDATED OF PLAN OF CARE. WILL CONTINUE TO MONITOR.
--- NOTE | 2017-11-21 12:35 | NUR ---
HR IN HIGH 40'S-50'S. DOPAMINE DRIP RESTARTED AT 5 MCG/KG/MIN. WILL CONTINUE TO MONITOR.
[2017-11-21] MEDS: DOPamine 400 MG/D5W PREMIX 250 ML IV SCH ×2 (12:43→21:17)
--- NOTE | 2017-11-21 13:02 | NUR ---
11/21/2017 RD INITIAL ASSESSMENT COMPLETED PLEASE REFER TO NUTRITION ASSESSMENT UNDER CARE ACTIVITY FOR ESTIMATED NUTRITIONAL NEEDS. CURRENT DIET: DIABETESOURCE @ 30ML/HOUR GOAL RATE 50 ML/HOUR. CURRENT TUBE FEED AT GOAL RATE WILL PROVIDE 1440 KCASL AND 72 GM PRO PER DAY, THIS WILL MEET 73% OF ESTIMATED ENERGY AND 70% OF ESTIMATED PRO NEEDS PER DAY. CONSIDER: DIABETESOURCE AC @70 ML/HOUR THIS WILL PROVIDE 2016 KCALS AND 101 GM PRO PER DAY, TO MEET 100% ESTIMATED ENERGY AND 98% ESTIMATED PRO NEEDS PER DAY. RD TO FOLLOW-UP IN 2-3 DAYS PATIENT IS HIGH RISK. DIANNE BERNSTEIN RD
--- NOTE | 2017-11-21 14:00 | NUR ---
RESTING IN BED. NO SIGNS OF PAIN OR AGITATION. TOLERATING VENTILATOR WELL. O2 SAT 100%. SR ON MONITOR. SBP IN 130'S-140'S. NO ECTOPY NOTED. HOB ELEVATED. WILL CONTINUE TO MONITOR.
--- NOTE | 2017-11-21 14:37 | NUR ---
DECREASED FI012 TO .40 RN AWARE
[2017-11-21] MEDS ORDERED: MORPHINE SULFATE 4 MG/ML SYR IVP SCH (15:20)
[2017-11-21] MEDS ORDERED: LORazepam 2 MG/ML VIAL IVP SCH (15:28)
--- NOTE | 2017-11-21 15:30 | NUR ---
INSERTED A 16F NGT ON RIGHT NARES. TOLERATED THE PROCEDURE WELL.
--- NOTE | 2017-11-21 15:40 | NUR ---
DR PADILLA AND ULTRASOUND TECHS ARE IN THE ROOM TO PUT ROHINI CATH TO THE PATIENT.
[2017-11-21 15:51] LABS: PHOSPHORUS 6.1 mg/dL (2.5-4.9)
[2017-11-21 15:56] LABS: ANION GAP 20.6 (8-16); CARBON DIOXIDE 18.1 mmol/L (21-32); POTASSIUM 3.7 mmol/L (3.5-5.1)
--- NOTE | 2017-11-21 16:00 | NUR ---
REASSESSMENT DONE. NEURO STATUS STILL THE SAME. NO SIGNS OF PAIN. OCCASIONAL AGITATION NOTED. TOLERATING CURRENT VENTILATOR SETTINGS WELL. O2 SAT 98-100%. SB ON MONITOR. SBP IN 130'S-150'S. NO ECTOPY NOTED. HOB ELEVATED. UPDATED OF PLAN OF CARE. WILL CONTINUE TO MONITOR.
--- NOTE | 2017-11-21 16:50 | NUR ---
DR PADILLA STATED THAT IT IS SAILAJA TO USE THE NGT AND ROHINI CATHETER NOW AFTER CHECKING THE XRAY FILMS AT BEDSIDE. STATED THAT HE WILL PUT THE ORDER IN THE COMPUTER CHARTING.
[2017-11-21] MEDS: FOLIC ACID 1 MG TAB PO SCH (17:00)
[2017-11-21] MEDS: LACTOBACILLUS RHAMNOSUS GG 1 EACH CAP PO SCH (17:00)
[2017-11-21] MEDS: THIAMINE 100 MG TAB PO SCH (17:00)
[2017-11-21] MEDS: MULTIVITAMIN 1 TAB PO SCH (17:00)
[2017-11-21] MEDS ORDERED: INSULIN DETEMIR 100 UNITS/ML 10 ML VIAL SUBQ SCH (17:07)
--- NOTE | 2017-11-21 18:00 | NUR ---
RESTING IN BED. NO SIGNS OF PAIN OR AGITATION. TOLERATING VENTILATOR WELL. O2 SAT 98-100%. SR ON MONITOR. SBP IN 120'S-140'S. NO ECTOPY NOTED. HOB ELEVATED. WILL CONTINUE TO MONITOR.
--- NOTE | 2017-11-21 18:10 | NUR ---
CONTINUED TO MONITOR PT ON VENT WITH SETTINGS CHARTED BREATH SOUNDS PRESENT BILAT AMBU BAG AT BEDSIDE VENT PLUGGED INTO RED OUTLET
--- NOTE | 2017-11-21 18:12 | NUR ---
DECREASDE FIO2 TO .35 RN ELEMER AWARE
[2017-11-21] MEDS: FUROSEMIDE 40 MG/4 ML VIAL IVP SCH (18:15)
--- NOTE | 2017-11-21 18:45 | NUR ---
DR CHOUDHARY IS IN THE ROOM. UPDATED OF STATUS. NO NEW ORDER RECEIVE.
--- NOTE | 2017-11-21 19:18 | NUR ---
REPORT GIVEN TO INCOMING OBSERVATION ASSISTANT RN, RN SRI.
--- NOTE | 2017-11-21 19:28 | NUR ---
RECEIVED PT STABLE ON VENT SUPPORT AT DOCUMENTED SETTINGS, SUCTIONED SCANT AMOUNTS OF THIN WHITE SECRETIONS, NO RESP DISTRESS OR SOB NOTED AT THIS TIME, 7.5 ETT SECURED AND PATENT AT 25 CM AT LIP, ALARMS SET AND AUDIBLE, AMBU BAG AT BEDSIDE, VENT PLUGGED INTO RED OUTLET, WILL CONT TO MONITOR.
--- NOTE | 2017-11-21 19:30 | NUR ---
RECEIVED REPORT FROM RN AM SHIFT. PT IS SEDATED . ETT NO 7.5 TO 25 CM LIP. ETT TO VENT WITH VENT SETTING AC 12, FIO2 35, TV 450 AND PEEP OF 5. NO S/S OF RESP DISTRESS AT THIS TIME. BILATERAL LUNGS SOUND CLEAR. CRISTAL CATH DOUBLE LUMEN TO RIGHT IJ. CENTRAL LINE CATHETER TO RIGHT IJ TRIPLE LUMENS. INTACT WELL. PT CONT ON VERSED 5 MG/HR ,DOPAIN 5 MCG/KG/MIN AND INSULIN DRIPS AT 2 UNITS/HR HARLEY WELL. CONT ON IV NS AT 5 CC/HR.DEX 10 % AT 100 CC/HR. NGT TO RIGHT NARES INTACT WELL. PLACEMENT CONFIRM BY AUSCULTATION. NEW ORDER TO START FEEDING DIABETIC SOURCE AT 30 CC/HR UNTIL REACH GOAL 50 CC/HE AND H2O AT 50 CC Q 6HRS. ABD FEEL HARD/DISTENDED. POSITIVE BOWEL SOUND TO ALL QUADRANT. EDEMA NOTED TO BUE +3 ,BLE+3 AND EDEMA TO PENIS AREA. REDNESS TO INGUINAL AREA. F/C INTACT WITH YELLOW CLEAR URINE. GENTLE CARE GIVEN. TURN/REPOSITION EVERY 2 HRS/PRN. GENTLE CARE GIVEN. KEPT CLEAN AND DRY. CALL LIGHT IN REACH.
--- NOTE | 2017-11-21 19:40 | NUR ---
FAMILY AT BED SIDE
--- NOTE | 2017-11-21 20:10 | NUR ---
PER PT DID NOT NEED DIALYSIS AT THIS TIME WILL . ALSO REPORTED THAT BLOOD SUGAR IS 99 PER MD TO DECREASE INSULIN DRIP TO 1 UNIT/HR.CONT TO MONITOR PT CLOSELY. OCTAVIA SISTER AT BED SIDE MADE AWARE THAT NO DIALYSIS AT THIS TIME.
--- NOTE | 2017-11-21 20:15 | NUR ---
COME TO SEE PT. PER MD NO NEW ORDER AT THIS TIME. CONT TO MONITOR ABG RESULT PER .
[2017-11-21 20:18] LABS: CARBON DIOXIDE 20.4 mmol/L (21-32); POTASSIUM 3.4 mmol/L (3.5-5.1)
--- NOTE | 2017-11-21 20:40 | NUR ---
DR. RASHEED NEPROLOGIST CALLED. PER TO CALL DIALYSIS CENTER TO STAND BY UNTIL RESULT BMP IS DONE. DIALYSIS NURSE MADE AWARE TO STAND BY.
--- NOTE | 2017-11-21 20:57 | NUR ---
DR KATHYA CAMILO MADE AWARE BMP RESULT. THE POTASSIUM 3.4,CARBON DIOXIDE 20.4, BUN 72 AND CREAT 4.0. PER MD TO HOLD THE DIALYSIS UNTIL TOMORROW. MD AWARE PT HAS 250 URINE AT THIS TIME.
[2017-11-21] MEDS: INSULIN HUMAN REGULAR 100 UNITS in NACL 0.9% 100 ML IV SCH (21:18)
--- NOTE | 2017-11-21 22:30 | NUR ---
JUAN JOSÉ SUGAR FINGER STICK RESULT [address] FUNMI SINGH MD TO CONT INSULIN DRIPS 1 UNITS AND NOTIFY IF BLOOD SUGAR ABOVE 180. Addendum: 11/21/17 at 2331 by Shayla Pinon RN BLOOD SUGAR FINGER STICK
[2017-11-21] MEDS ORDERED: POTASSIUM CHLORIDE 20% 40 MEQ/15 ML UDC GT SCH (22:35)
--- NOTE | 2017-11-21 22:45 | NUR ---
ABG RESULT REPORTED TO NO NEW ORDER AT THIS TIME.
[2017-11-22] VITALS (103 sets, daily range): BP systolic 15–156; BP diastolic 46–123
--- NOTE | 2017-11-22 | NUR ---
REPOSITION P TO RIGHT SIDE FOR COMFORT. NO S/S OF PAIN AT THIS TIME. NO OPEN WOUND NOTED.
[2017-11-22] MEDS: CLINDAMYCIN 600 MG in DEXTROSE 5% 50 ML IV SCH ×5 (00:19→23:27)
[2017-11-22] MEDS: BLOOD GLUCOSE MONITORING 1 DEV DEV FS SCH ×24 (00:20→23:27)
[2017-11-22] MEDS: FUROSEMIDE 40 MG/4 ML VIAL IVP SCH ×3 (00:20→12:27)
--- NOTE | 2017-11-22 02:20 | NUR ---
PT NOTICE WITH FACIAL GRIMMICING AND UNEASY,REPOSITION PT FOR COMFORT.NORCO 7.5/325 GIVEN VIA GT ORDER.
[2017-11-22 02:52] LABS: ANION GAP 18.3 (8-16); CARBON DIOXIDE 19.2 mmol/L (21-32); CREATININE 3.9 mg/dL (0.7-1.3); POTASSIUM 3.5 mmol/L (3.5-5.1)
--- NOTE | 2017-11-22 03:14 | NUR ---
PT SLEEPING NO S/S OF PAIN FLACC 0. DOPAMINE ON HOLD AT THIS TIME D/T INCREASE GIOVANNY 141/99 MAP 111 AND HR 65. CONT TO MONITOR CLOSE LY. Addendum: 11/22/17 at 0548 by Shayla Pinon RN D/T INCREASE B/P
[2017-11-22] MEDS: MIDAZOLAM MDV 50 MG in NACL 0.9% 40 ML IV PRN (03:37)
--- NOTE | 2017-11-22 04:30 | NUR ---
PT HAS URINATE ABOUT 450 CC YELLOW CLEAR COLOR. AM CARE GIVEN. VAP ORAL CARE GIVEN.F/C CARE GIVEN REPOSITION PT FOR COMFORT. KEPT CLEAN AND DRY.
[2017-11-22 04:42] LABS: ANION GAP 15.8 (8-16); CARBON DIOXIDE 20.9 mmol/L (21-32); POTASSIUM 3.7 mmol/L (3.5-5.1)
[2017-11-22] MEDS: LORazepam 1 MG TAB PO SCH ×3 (05:05→21:05)
--- NOTE | 2017-11-22 05:45 | NUR ---
COME TO SEE RESIDENT UPDATE PT STATUS AND MADE AWARE BUN IS 73.
--- NOTE | 2017-11-22 06:24 | NUR ---
BLOOD SUGAR IS 180.PER TO INCREASE INSULIN TO 2 UNITS/HR.
[2017-11-22] MEDS: ALBUTEROL SULFATE/IPRATROPIU 3 ML SOL IH PRN (06:44)
--- NOTE | 2017-11-22 06:50 | NUR ---
RECEIVED PT ON VENT WITH SETTINGS CHARTED BREATH SOUNDS PRESENT BILAT CLEAR SXN PT FOR SMALL AMT OFF WHITE SECS AMBU BAG AT BEDSIDE VENT PLUGGED INTO RED OUTLET
[2017-11-22] MEDS: DEXTROSE 10% 1,000 ML IV SCH ×2 (07:18→23:29)
--- NOTE | 2017-11-22 07:18 | NUR ---
REPORT GIVEN TO MINGO RN AM SHIFT. MADE AWARE THAT FEEDING IS CREASE TO 40 CC/HR TO REACH 50 CC/HR. MADE AWARE TO NOTIFY DR.SARANI PATEL BMP RESULT TO CONFIRM IF NEED TO DO DIALYSIS.
--- NOTE | 2017-11-22 07:30 | NUR ---
RECEIVED A REPORT FROM MARIYA FIERRO. PT IS SEDATED WITH VERSED IV CONTINUOUS DRIP ORDERED AND UNABLE TO FOLLOW COMMANDS. ETT TO VENT AND SETTING AT FiO2 30, VT 450, AC 12, PEEP 5. NGT IN PLACED FOR FEEDING. ABDOMEN SOFT AND NONTENDER. ABREU CATHETER DRAINING CLEAR YELLOW URINE. SKIN COOL TO TOUCH AND GENERALIZED BODY EDEMATOUS NOTED. CENTRAL LINE TO RT IJ [id number] AND ROHINI CATH FOR HD IN PLACED. DRESSING INTACT AND DRY. APPLIED WITH BILATERAL SOFT WRIST RESTRAINT. SAFETY PRECAUTION, BED IN LOW POSITION. WILL CONTINUE TO MONITOR.
--- NOTE | 2017-11-22 08:10 | NUR ---
RESIDENT GROUP IN TO SEE PT AT BEDSIDE. WILL FOLLOW UP ON ORDERS
--- NOTE | 2017-11-22 08:10 | NUR ---
RESIDENT GROUP IN TO SEE PT AT BEDSIDE. WILL FOLLOW UP ON ORDERS
[2017-11-22 08:16] LABS: HEPATITIS A ANTIBODY IGM Negative (Negative); HEPATITIS B CORE AB TOTAL Positive (Negative); HEPATITIS B SURFACE ANTIBODY Non Reactive (.); HEPATITIS B SURFACE ANTIGEN Negative (Negative)
--- NOTE | 2017-11-22 08:57 | NUR ---
REPORT TO DR. GENEVA GARCIA REGARDING CRITICAL CXR RESULT AND BLOOD GLUCOSE RESULT. WILL FOLLOW UP ON ORDERS.
[2017-11-22] MEDS ORDERED: LEVOFLOXACIN 750 MG/D5W PREMIX 150 ML IV SCH (09:00)
[2017-11-22] MEDS: NYSTATIN/TRIAMCINOLONE CRM 15 GM TUBE TP SCH ×2 (09:00→21:05)
[2017-11-22] MEDS: DOCUSATE 100 MG/10 ML UDC GT SCH ×2 (09:53→21:04)
[2017-11-22] MEDS: CALCIUM ACETATE 667 MG TAB PO SCH ×2 (09:53→16:43)
[2017-11-22] MEDS: THIAMINE 100 MG TAB PO SCH (09:53)
[2017-11-22] MEDS: LACTOBACILLUS RHAMNOSUS GG 1 EACH CAP PO SCH (09:53)
[2017-11-22] MEDS: PANTOPRAZOLE 40 MG INJ VIAL IVP SCH (09:53)
[2017-11-22] MEDS: MULTIVITAMIN 1 TAB PO SCH (09:53)
[2017-11-22] MEDS: FOLIC ACID 1 MG TAB PO SCH (09:53)
[2017-11-22 10:16] LABS: ANION GAP 19.4 (8-16); CARBON DIOXIDE 17.6 mmol/L (21-32)
[2017-11-22] MEDS: LEVOFLOXACIN 500 MG/D5W PREMIX 100 ML IV SCH (10:17)
--- NOTE | 2017-11-22 10:19 | NUR ---
RESIDUAL 200ML NOTED FROM NGT AND NOTIFIED TO DR. GENEVA GARCIA. PER DR. GARCIA, HOLD FEEDING AT THIS TIME AND CONTINUE TO CHECK THE RESIDUAL. WILL FOLLOW UP ON ORDERS.
[2017-11-22 10:22] LABS: PHOSPHORUS 5.8 mg/dL (2.5-4.9)
--- NOTE | 2017-11-22 10:31 | NUR ---
PAGED SPARKLE LIU REGARDING BMP LAB RESULT AND REPORTED IT. NO NEW ORDERS AT THIS TIME AND HOLD HEMODIALYSIS FOR NOW. WILL CONTINUE TO MONITOR.
[2017-11-22 11:08] LABS: MAGNESIUM 1.9 mg/dL (1.8-2.4)
--- NOTE | 2017-11-22 11:28 | NUR ---
REPORTED TO DR. GENEVA GARCIA REGARDING DECREASING BP AND HR AFTER STOP DOPAMIN. PER DR. GARCIA, START DOPAMIN AT 5MCG/HR. WILL CONTINUE TO MONITOR.
[2017-11-22 11:50] LABS: ANION GAP 19.8 (8-16); CARBON DIOXIDE 17.2 mmol/L (21-32)
--- NOTE | 2017-11-22 12:13 | NUR ---
DR. SPARKLE RASHEED IN TO SEE PT. WILL FOLLOW UP ON ORDERS
[2017-11-22] MEDS: SODIUM BICARBONATE 650 MG TAB PO SCH ×3 (12:29→21:04)
[2017-11-22 12:40] LABS: MAGNESIUM 1.9 mg/dL (1.8-2.4); PHOSPHORUS 5.5 mg/dL (2.5-4.9)
--- NOTE | 2017-11-22 12:46 | NUR ---
DIALYSIS NURSE IS AT BEDSIDE FOR HEMODIALYSIS PER DR. KALEB RASHEED ORDER. WILL CONTINUE TO MONITOR AND FOLLOW UP ON ORDERS.
[2017-11-22] MEDS ORDERED: PROBIOTIC SCREEN 1 EA MISC MC PRN (13:35)
[2017-11-22] MEDS: MIDAZOLAM MDV 100 MG in NACL 0.9% 80 ML IV PRN (14:02)
--- NOTE | 2017-11-22 15:20 | NUR ---
NUTRITION NOTE SPOKE WITH RN, MINGO, DISCUSSED CURRENT TUBE FEED RATE IS 30 ML/HR, RECOMMENDED GOAL RATE OF 70 ML/HR. RN STATED SHE STOPPED FEEDS EARLIER DUE TO HIGH RESIDUALS, DR. GARCIA CHANGED DIET ORDER TO 30 ML/HR UNTIL PT CAN TOLERATE HIGHER RATE. SPOKE WITH DR. GARCIA, DID NOT PUT GOAL RATE IN YET, OR INCREASE RATE DUE TO MD WANTS TO MONITOR TOLERANCE OF FEEDS AND THEN INCREASE THE RATE APPROPRIATE WITH A CLEAR DIET ORDER.
--- NOTE | 2017-11-22 15:40 | NUR ---
DR. BENAVIDES IN TO SEE PT. WILL FOLLOW UP ON ORDERS
--- NOTE | 2017-11-22 15:49 | NUR ---
DIALYSIS COMPLETED WITHOUT ANY COMPLICATION AT THIS TIME AND 2000ML OUTPUT FROM DIALYSIS NOTED.
[2017-11-22] MEDS: DOPamine 400 MG/D5W PREMIX 250 ML IV SCH (16:34)
[2017-11-22] MEDS: FUROSEMIDE 100 MG in DEXTROSE 5% 100 ML IV SCH (16:46)
--- NOTE | 2017-11-22 17:06 | NUR ---
HOLD NGT FEEDING DUE TO GASTRIC RESIDUAL 120ML NOTED. WILL CONTINUE TO MONITOR
[2017-11-22 17:11] LABS: CARBON DIOXIDE 23.7 mmol/L (21-32); CREATININE 3.2 mg/dL (0.7-1.3); POTASSIUM 3.7 mmol/L (3.5-5.1)
[2017-11-22 17:15] LABS: MAGNESIUM 1.7 mg/dL (1.8-2.4); PHOSPHORUS 4.6 mg/dL (2.5-4.9)
--- NOTE | 2017-11-22 17:46 | NUR ---
JULY IVORY IN TO SEE PT AND MADE AWARE OF HOLD NGT FEEDING. PER DR. CHOUDHARY, CONTINUE TO HOLD FEEDING UNTIL FURTHER ORDER. WILL FOLLOW UP ON ORDERS
--- NOTE | 2017-11-22 18:01 | NUR ---
CONTINUED TO MONITOR PT ON VENT WITH SETTINGS CHARTED BREATH SOUNDS PRESENT BILAT CLEAR SXN PT WITH MIN AMT OFF WHITE SECS AMBU BAG AT BEDSIDE VENT PLUGGED INTO RED OUTLET WILL CONTINUE TO MONITOR PT ON VENT
--- NOTE | 2017-11-22 18:26 | NUR ---
BLOOD GLUCOSE 77 CHECKED AND NOTIFIED JULY IVORY. PER DR. MCDOWELL, START NGT FEEDING AND CONTINUE ON INSULIN DRIP 4UNIT/H PER PROTOCOL, THEN RECHECK BLOOD GLUCOSE IN ONE HOUR. GASTRIC RESIDUAL 50ML NOTED AND RESTARTED NGT FEEDING AT 30ML/HR ORDERED. WILL CONTINUE TO MONITOR.
[2017-11-22] MEDS: DEXTROSE 50% 50 ML SYR IVP PRN ×2 (19:29→23:28)
--- NOTE | 2017-11-22 19:29 | NUR ---
BLOOD GLUCOSE 67 CHECKED. JULY IVORY WAS NOTIFIED AND STATED THAT GIVE D50 IV X1 PRN ORDERED HOWEVER CONTINUE WITH INSULIN DRIP 4UNIT AT THIS TIME. ENDORSED CARE AND REPORT GIVEN TO MARIYA FIERRO FOR FOLLOW UP.
--- NOTE | 2017-11-22 19:30 | NUR ---
RECEIVED PT FROM AM SHIFT PT IS SEDATED,CONT ON ETT TO VENT WITH VENT SETTING AC 12 VT 450 FIO2 30 AND PEEP 5.TOLERATED WELL.[place] LUNGS SOUND RHONCHI.HOB UP 30-45 DEGREE ALL THE TIMES. PT HAS QUNTON CATH DOUBLE LUMEN TO RIGHT IJ, PT HAS CENTRAL LINE TO RIJ.INTACT WELL. NO S/S OF INFECTION NO BLEEDING ON THE SITE.CONT ON VERSED AT 6 MG/KG/MIN CONT ON DOPAMINE AT 5 MG/HR ,LASIX AT 5 ML/HR, INSULIN AT 4 UNITS/HR,CONT ON NS KEPT TO OPEN, CONT ON DEX 10% AT 40 CC/HR HARLEY WELL. SR ON MONITOR. NGT TO RIGHT NARE WITH TUBE FEEDING DIABETIC SOURCE AT 30 CC/HR WITH 60 CC RESIDUAL NOTED.H2O AT 50 CC Q 6HRS. POSITIVE BOWEL SOUNDS TO ALL QUADRANT.PER AM SHIFT PT HAS DIALYSIS IN AM HARLEY WELL TOOK ABOUT 2 LITER FLUIDS.PT HAS GENERALIZE EDEMA, BUE +2 AND BLE+2 NON PITTING. EDEMATOUS TO PENIS AREA. F/C IN PLACE WITH YELLOW CLEAR URINE.KEPT CLEAN AND DRY. CALL LIGHT IN REACH.
--- NOTE | 2017-11-22 20:10 | NUR ---
FAMILY AT BED SIDE.
[2017-11-22 20:41] LABS: ANION GAP 13.1 (8-16); CARBON DIOXIDE 23.6 mmol/L (21-32); CREATININE 3.1 mg/dL (0.7-1.3); POTASSIUM 3.7 mmol/L (3.5-5.1)
[2017-11-22 20:46] LABS: MAGNESIUM 1.6 mg/dL (1.8-2.4); PHOSPHORUS 4.6 mg/dL (2.5-4.9)
--- NOTE | 2017-11-22 21:00 | NUR ---
NIGHT MED GIVEN HARLEY WELL.
[2017-11-22] MEDS: INSULIN DETEMIR 100 UNITS/ML 10 ML VIAL SUBQ SCH (23:25)
[2017-11-22] MEDS ORDERED: MAG SULF 2000 MG/WATER PREMIX 50 ML IV SCH (23:30)
[2017-11-23] VITALS (45 sets, daily range): BP systolic 99–138; BP diastolic 60–87
[2017-11-23] MEDS: BLOOD GLUCOSE MONITORING 1 DEV DEV FS SCH ×6 (00:05→20:19)
[2017-11-23] MEDS ORDERED: NACL 0.9% 1,000 ML IV SCH (02:00)
--- NOTE | 2017-11-23 02:47 | NUR ---
PT IS AGITATED,UN ABLE TO DO CT SCAN AT THOIS TIME.PER MAY DO CT SCAN LATER.VERSED INCREASED T0 8 MG/HR
--- NOTE | 2017-11-23 04:00 | NUR ---
AM CARE GIVEN,SPONGE BATH,VAP ORAL CARE, F/C CARE. GENTLE CARE GIVEN. KEPT CLEAN AND DRY.
[2017-11-23 04:20] LABS: HEMATOCRIT 25.4 % (36-52); HEMOGLOBIN 8.3 g/dL (12.0-18.0); MEAN CORPUSCULAR HEMOGLOBIN 27 pg (27-31); MEAN CORPUSCULAR HGB CONC 33 g/dL (33-37); MEAN CORPUSCULAR VOLUME 83 fL (80-94); PLATELET COUNT (AUTO) 138 K/uL (140-450); RED BLOOD CELL COUNT(AUTO) 3.07 MIL/uL (4.20-6.10); RED CELL DISTRIBUTION WIDTH 13.6 % (11.6-13.7); WHITE BLOOD COUNT (AUTO) 5.1 K/uL (4.8-10.8)
[2017-11-23 04:44] LABS: EOSINOPHILS % (MANUAL) 2 % (0-4); LYMPHOCYTES % (MANUAL) 6 % (20-46); MONOCYTES % (MANUAL) 10 % (5-12)
--- NOTE | 2017-11-23 04:45 | NUR ---
DOPAMINE WAS ON HOLD BP AND HR BETWEEN NORMAL RATE.
[2017-11-23 04:53] LABS: ANION GAP 12.4 (8-16); CARBON DIOXIDE 22.7 mmol/L (21-32); CREATININE 3.3 mg/dL (0.7-1.3); POTASSIUM 4.1 mmol/L (3.5-5.1)
[2017-11-23] MEDS: LORazepam 1 MG TAB PO SCH ×3 (05:00→21:03)
[2017-11-23] MEDS: CLINDAMYCIN 600 MG in DEXTROSE 5% 50 ML IV SCH ×3 (05:01→17:25)
[2017-11-23] MEDS: MIDAZOLAM MDV 100 MG in NACL 0.9% 80 ML IV PRN ×3 (05:18→23:40)
--- NOTE | 2017-11-23 05:20 | NUR ---
AM MEDS GIVEN HARLEY WELL. NGT FEEDING RESIDUAL ABOUT 20 CC. 1000 CC YELLOW CLEAR URINE NOTED ON THE URINARY BAG.
[2017-11-23] MEDS: INSULIN LISPRO SLIDING SCALE 100 UNITS/ML VIAL SUBQ PRN ×4 (05:26→20:19)
[2017-11-23] MEDS ORDERED: LORazepam 2 MG/ML VIAL IVP PRN (06:25)
--- NOTE | 2017-11-23 06:39 | NUR ---
DR GARCIA COME TO SEE PT, UP DATE TO HER PT STATUS. ALSO UP DATE THAT NO CT SCAN DONE YET DUE TO PT IS RESTLESS.PER MD WILL FOLLOW UP.
--- NOTE | 2017-11-23 07:11 | NUR ---
RECEIVED PT ON CARESCAPE ON A/C 12 VT500 PEEP5 FIO2 30 ALARMS ARE ON AND FUNCTIONAL BMV HOB PTS ET TUBE IS SECURE SIZE 7.5 25 CM ANCHOR FAST IN PLACE BS CLEAR PT IN HF ASLEEP PT IS RESTRAINED NO APPARENT DISTRESS VENT PLUGGED INTO RED OUTLET
[2017-11-23] MEDS ORDERED: BLOOD GLUCOSE MONITORING 1 DEV DEV FS SCH (07:30)
--- NOTE | 2017-11-23 07:30 | NUR ---
RECEIVED REPORT FROM INSIDE PARTS SALES NURSE. PT IS SEDATED, RASS -1, FLACC 0. NSR ON MONITOR. S1, S2 AUSCULTATED. PT IS ETT TO VENT WITH SETTINGS: AC12, FIO2 30%, TV 450, PEEP 5. BILATERAL RHONCHI AUSCULTATED. BREATHING UNLABORED W/ BL EQUAL CHEST RISE. NO SOB NOTED. PT HAS ROHINI CATH DL TO RIJ, CENTRAL LINE TLC TO RIJ PATENT AND INTACT, RECEIVING NORMAL SALINE AT 40 ML/HR AND VERSED DRIP AT 9 MG/HR, LASIX AT 5 ML/HR. NGT TO RIGHT NARE IN PLACE, PLACEMENT CONFIRMED. PT IS RECEIVING DIABETISOURCE AT 30 ML/HR AND H2O FLUSH AT 50 ML Q6HR, 80 ML OF RESIDUALS NOTED. SKIN IS DRY AND WARM TO TOUCH. REDNESS AND INCONTINENT DERMATITIS NOTED AROUND PERINEAL AND PERIANAL AREA. HOB 30 DEGREES, BED IN LOW POSITION AND CALL LIGHT WITHIN REACH. WILL CONTINUE TO MONITOR.
--- NOTE | 2017-11-23 07:31 | NUR ---
ABREU CATH IN PLACE DRAINING CLEAR YELLOW URINE TO GRAVITY DRAINAGE BAG. SCROTAL EDEMA AND 2+ BLLE EDEMA NOTED.
[2017-11-23] MEDS: LACTOBACILLUS RHAMNOSUS GG 1 EACH CAP PO SCH (09:21)
[2017-11-23] MEDS: MULTIVITAMIN 1 TAB PO SCH (09:21)
[2017-11-23] MEDS: CALCIUM ACETATE 667 MG TAB PO SCH ×2 (09:21→16:47)
[2017-11-23] MEDS: FOLIC ACID 1 MG TAB PO SCH (09:21)
[2017-11-23] MEDS: SODIUM BICARBONATE 650 MG TAB PO SCH ×4 (09:22→21:04)
[2017-11-23] MEDS: DOCUSATE 100 MG/10 ML UDC GT SCH ×2 (09:22→21:00)
[2017-11-23] MEDS: CALCIUM CARBONATE 500 MG TAB NG SCH ×2 (09:23→21:03)
[2017-11-23] MEDS: PANTOPRAZOLE 40 MG INJ VIAL IVP SCH (09:24)
[2017-11-23] MEDS: THIAMINE 100 MG TAB PO SCH (09:24)
[2017-11-23] MEDS: NYSTATIN/TRIAMCINOLONE CRM 15 GM TUBE TP SCH ×2 (09:26→21:00)
--- NOTE | 2017-11-23 09:40 | NUR ---
MEDICATIONS ADMINISTERED. PT TOLERATED WELL.
[2017-11-23] MEDS: FUROSEMIDE 100 MG in DEXTROSE 5% 100 ML IV SCH (11:26)
--- NOTE | 2017-11-23 11:30 | NUR ---
NO CHANGE OF CONDITION AT THIS TIME. VITAL SIGNS STABLE. NO ACUTE DISTRESS NOTED AT THIS TIME. SAFETY PRECAUTIONS IN PLACE. WILL CONTINUE TO MONITOR.
--- NOTE | 2017-11-23 12:04 | NUR ---
11/23/17 RD FOLLOW UP COMPLETED PLEASE REFER TO NUTRITION PROGRESS NOTE UNDER CARE ACTIVITY FOR ESTIMATED NUTRITION NEEDS. RD RECOMMENDATIONS: 1. CONTINUE ON DIABETISOURCE AC AT 30 ML/HR AND INCREASE TO GOAL OF 50 ML/HR TOLERATED. 2. CONSULT RDN PRN. 3. RD WILL F/U 2-3 DAYS; HIGH RISK. TYREE QUINTERO, MS, RDN
--- NOTE | 2017-11-23 13:00 | NUR ---
VERSED DRIP INCREASED FROM 11 MG/HR TO 12 MG/HR DUE TO RESTLESSNESS.
--- NOTE | 2017-11-23 13:30 | NUR ---
PT HAS EPISODES OF AGITATION, RESTLESSNESS AND ATTEMPTING TO PULL OUT TUBES. DR. GARCIA MADE AWARE. WILL FOLLOW UP ON ORDERS.
[2017-11-23] MEDS: fentaNYL 1 MG in NACL 0.9% 80 ML IV PRN (15:03)
--- NOTE | 2017-11-23 16:05 | NUR ---
[id number] PT TAKEN TO C-SCAN WITHOUT INCIDENT
--- NOTE | 2017-11-23 16:43 | NUR ---
CT COMPLETED. PT TOLERATED WELL. NO SOB OR ACUTE DISTRESS NOTED. VITAL SIGNS STABLE.
--- NOTE | 2017-11-23 16:59 | NUR ---
DR. BENAVIDES IN TO SEE PT. WILL FOLLOW UP ON ORDERS.
--- NOTE | 2017-11-23 18:10 | NUR ---
DR. CHOUDHARY IN TO SEE AND EXAMINE PT. UPDATES GIVEN. WILL FOLLOW UP WITH NEW ORDERS.
--- NOTE | 2017-11-23 19:15 | NUR ---
RECEIVED PATIENT ON BED WITH HOB ELEVATED TO 30 DEGREE; SEDATED WITH VERSED DRIP 12 MG/HR AND WITH FENTANYL DRIP AT 45 MCG/HR VIA CENTRAL LINE ON RIGHT INTERNAL JUGULAR; IVF IN PROGRESS NORMAL SALINE AT 40 ML/HR AND ON LASIX DRIP AT 5 MG/HR. ORALLY INTUBATED AND VENTILATED AT 30 % FIO2; SO2 100%. CARDIACSCOPE SHOWS ON SINUS RHYTHM HR 60/MIN NO AARRHYTHMIAS SEEN. ABDOMEN SOFT, NON TENDER, HYPOACTIVE BOWEL SOUNDS.ON CONTINOUS TUBE FEEDING DIABETISOURCE 30 ML/HR VIA NGT; TOLERATED. WITH ABREU CATH IN PLACE TO GRAVITY DRAINAGE BAG DRAINING TO CLEAR YELLOW URINE OUTPUT; PATENT AND INTACT.
--- NOTE | 2017-11-23 19:25 | NUR ---
SEEN AND EXAMINED BY DR. RASHEED WITH ORDER FOR DIALYSIS TOMORROW AND TO INCREASE THE LASIX DRIP TO 7 MG/HR ; CARRIED OUT.
--- NOTE | 2017-11-23 19:28 | NUR ---
REPORT GIVEN TO SUPERVISOR PLASTERING NURSE FOR CONTINUITY OF CARE. PT IS IN STABLE CONDITION.
[2017-11-23] MEDS: ALBUTEROL SULFATE/IPRATROPIU 3 ML SOL IH PRN (19:37)
--- NOTE | 2017-11-23 19:39 | NUR ---
RECEIVED PT STABLE ON VENT SUPPORT AT DOCUMENTED SETTINGS, SUCTIONED SMALL AMOUNTS OF THIN WHITE SECRETIONS, PRN HHN TX GIVEN, TOLERATED WELL, NO RESP DISTRESS OR SOB NOTED AT THIS TIME, 7.5 ETT SECURED AND PATENT AT 25 CM AT THE LIP, ALARMS SET AND AUDIBLE, AMBU BAG AT BEDSIDE, VENT PLUGGED INTO RED OUTLET, WILL CONT TO MONITOR.
--- NOTE | 2017-11-23 20:00 | NUR ---
NGT CHECKED; WITH MINIMAL AMOUNT OF RESIDUAL; TUBE FEEDING ADVANCE FROM 30 TO 40 ML/HR ORDERED.
--- NOTE | 2017-11-23 20:30 | NUR ---
TURNED AND REPOSITIONED PATIENT; ORAL CARE DONE WITH VAP KIT.
[2017-11-23] MEDS: INSULIN DETEMIR 100 UNITS/ML 10 ML VIAL SUBQ SCH (21:05)
[2017-11-23 22:21] LABS: FERRITIN QNS ng/mL (30 - 400)
[2017-11-23 22:22] LABS: FOLIC ACID QNS ng/mL (>3.0); TRANSFERRIN QNS mg/dL (200 - 370)
--- NOTE | 2017-11-23 23:45 | NUR ---
FOR DIALYSIS TOMORROW MORNING ORDERED BY DR. RASHEED; DIALYSIS NURSE SHRUTHI VILA NOTIFIED.
[2017-11-24] VITALS (40 sets, daily range): BP systolic 88–144; BP diastolic 42–87
--- NOTE | 2017-11-24 | NUR ---
TURNED AND REPOSITIONED PATIENT; ORAL CARE DONE WITH VAP KIT PER ROSIBEL.
--- NOTE | 2017-11-24 | NUR ---
TURNED AND REPOSITIONED PATIENT; ORAL CARE DONE WITH VAP KIT.
[2017-11-24] MEDS: CLINDAMYCIN 600 MG in DEXTROSE 5% 50 ML IV SCH ×4 (00:16→17:09)
--- NOTE | 2017-11-24 04:00 | NUR ---
MORNING BED BATH DONE; WOUND CARE DONE.
[2017-11-24] MEDS: BLOOD GLUCOSE MONITORING 1 DEV DEV FS SCH ×6 (04:20→20:16)
[2017-11-24] MEDS: LORazepam 1 MG TAB PO SCH ×3 (05:00→21:00)
[2017-11-24] MEDS ORDERED: FUROSEMIDE 100 MG/10 ML VIAL ONE ×2 (05:49→23:36)
[2017-11-24 05:52] LABS: BASOPHILS # (AUTO) 0.1 K/uL (0.00-0.22); BASOPHILS % (AUTO) 1.9 % (0.0-2.0); EOSINOPHILS # (AUTO) 0.1 K/uL (0-0.4); EOSINOPHILS % (AUTO) 4.2 % (0.0-4.0); HEMOGLOBIN 7.4 g/dL (12.0-18.0); LYMPHOCYTES # (AUTO) 0.4 K/uL (2.0-11.5); LYMPHOCYTES % (AUTO) 14.1 % (20.5-51.1); MEAN CORPUSCULAR HEMOGLOBIN 28 pg (27-31); MEAN CORPUSCULAR HGB CONC 34 g/dL (33-37); MEAN CORPUSCULAR VOLUME 82 fL (80-94); MONOCYTES # (AUTO) 0.3 K/uL (0.8-1.0); MONOCYTES % (AUTO) 10.2 % (1.7-9.3); NEUTROPHILS % (AUTO) 69.6 % (42.2-75.2); PLATELET COUNT (AUTO) 91 K/uL (140-450); RED BLOOD CELL COUNT(AUTO) 2.69 MIL/uL (4.20-6.10); RED CELL DISTRIBUTION WIDTH 14.2 % (11.6-13.7); WHITE BLOOD COUNT (AUTO) 2.9 K/uL (4.8-10.8)
[2017-11-24] MEDS: FUROSEMIDE 100 MG in DEXTROSE 5% 100 ML IV SCH ×2 (06:01→23:47)
--- NOTE | 2017-11-24 06:15 | NUR ---
REC'D PT ON CARESCAPE VENT SETTINGS AC12 VT 450 PEEP 5 FIO2 30% ALARMS ON AND FUNCTIONING PROPERLY, AMBU BAG IS AT SIDE OF VENT AND VENT IS PLUGGED INTO RED OUTLET, SXN PT SMALL AMT OF WHITE SECRETIONS, B\S ARE CLEAR BILATERALLY, AND PT IS ORALLY INTUBATED WITH 7.5 ET TUBE SECURED WITH ANCHOR FAST AT 25 CM AT MIDLINE OF MOUTH AND SKIN INTEGRITY IS INTACT, NO HHN TX NEEDED AT THIS TIME, PT IS SLEEPING
[2017-11-24 06:22] LABS: MAGNESIUM 2.1 mg/dL (1.8-2.4); PHOSPHORUS 5.7 mg/dL (2.5-4.9)
[2017-11-24 06:42] LABS: ANION GAP 12.3 (8-16); CARBON DIOXIDE 22.6 mmol/L (21-32); CREATININE 3.4 mg/dL (0.7-1.3); POTASSIUM 3.9 mmol/L (3.5-5.1)
--- NOTE | 2017-11-24 07:30 | NUR ---
TELESALES SPECIALIST CHARGE NURSE SPOKE WITH DR. RASHEED. PER DR. RASHEED, HOLD IV FLUID UNTIL DIALYSIS IS DONE.
--- NOTE | 2017-11-24 07:30 | NUR ---
RECEIVED REPORT FROM NIGHT NURSE. PT IS SEDATED. OPENS EYES TO CALLING NAME AND LIGHT SHAKING. FLACC 0. SINUS DEMETRIUS ON MONITOR. S1, S2 HEARD. PT IS ETT TO VENT: AC 12, FIO2 30%, TV 450, PEEP 5. BILATERAL LUNGS CLEAR, DIMINISHED LOWER LOBES. CENTRAL LINE TLC PATENT AND INTACT, AND ROHINI CATH TO RIGHT IJ IN PLACE. PT IS ON VERSED DRIP AT 10 MG/H, FENTANYL DRIP AT 40 MCG/H, LASIX DRIP AT 7 MG/H. NGT IN PLACE TO RIGHT NARE, PLACEMENT CONFIRMED. RESIDUAL 60 ML. PT IS RECEIVING TUBE FEEDING DIABETISOURCE AT 40 ML/H AND H2O FLUSH 50 ML Q6H. ABDOMEN SOFT, NON DISTENDED, NONTENDER, WITH ACTIVE BOWEL SOUNDS. MILD BLADDER DISTENTION NOTED. PT IS ON ABREU CATH DRAINING CLEAR YELLOW URINE. SCROTAL EDEMA NOTED. ABLE TO MOVE ALL EXTREMITIES. SCDS IN PLACE FOR VTE PROPHYLAXIS. SKIN IS DRY AND WARM TO TOUCH. HOB 30 DEGREES AND BED IN LOW POSITION. CALL LIGHT WITHIN REACH. WILL CONTINUE TO MONITOR.
[2017-11-24] MEDS ORDERED: NACL 0.9% 1,000 ML IV SCH (08:05)
--- NOTE | 2017-11-24 08:30 | NUR ---
BLADDER SCAN COMPLETED. URINE VOLUME GREATER THAN 264 ML.
[2017-11-24] MEDS: PANTOPRAZOLE 40 MG INJ VIAL IVP SCH (08:36)
[2017-11-24] MEDS: CALCIUM ACETATE 667 MG TAB PO SCH ×2 (08:37→17:09)
[2017-11-24] MEDS: THIAMINE 100 MG TAB PO SCH (08:37)
[2017-11-24] MEDS: MULTIVITAMIN 1 TAB PO SCH (08:37)
[2017-11-24] MEDS: LACTOBACILLUS RHAMNOSUS GG 1 EACH CAP PO SCH (08:37)
[2017-11-24] MEDS: FOLIC ACID 1 MG TAB PO SCH (08:37)
[2017-11-24] MEDS: CALCIUM CARBONATE 500 MG TAB NG SCH ×2 (08:38→20:48)
[2017-11-24] MEDS: SODIUM BICARBONATE 650 MG TAB PO SCH ×4 (08:38→20:48)
[2017-11-24] MEDS: NYSTATIN/TRIAMCINOLONE CRM 15 GM TUBE TP SCH ×2 (08:38→21:00)
[2017-11-24] MEDS: DOCUSATE 100 MG/10 ML UDC GT SCH ×2 (08:39→20:48)
--- NOTE | 2017-11-24 08:43 | NUR ---
DR. GARCIA AWARE OF PT'S ABNORMAL CBC, BMP RESULTS AND SCHEDULED DIALYSIS TODAY.
[2017-11-24] MEDS: MIDAZOLAM MDV 100 MG in NACL 0.9% 80 ML IV PRN ×2 (08:56→19:53)
[2017-11-24] MEDS ORDERED: Z-GUARD PASTE TP PRN (09:00)
--- NOTE | 2017-11-24 09:04 | NUR ---
MEDICATIONS ADMINISTERED. PT TOLERATED WELL.
--- NOTE | 2017-11-24 09:10 | NUR ---
VENT CHECK, SXN PT NO RETURN AND AIRWAY IS PATENT AND PT IS SLEEPING WITH NO SIGNS OF DISTRESS NOTED
[2017-11-24] MEDS: LEVOFLOXACIN 500 MG/D5W PREMIX 100 ML IV SCH (09:26)
--- NOTE | 2017-11-24 10:15 | NUR ---
DR. ROWELL AND RESIDENT GROUP IN TO SEE PT. WILL FOLLOW UP ON ORDERS.
--- NOTE | 2017-11-24 11:05 | NUR ---
PT RECEIVING HEMODIALYSIS. VITAL SIGNS STABLE. NO ACUTE DISTRESS AT THIS TIME.
--- NOTE | 2017-11-24 11:05 | NUR ---
VENT CHECK, NO SXN REQUIRED AT THIS TIME AIRWAY IS PATENT AND PT IS RECEIVING DIALYSIS
--- NOTE | 2017-11-24 11:40 | NUR ---
DR. BRENNAN IN TO SEE PT. WILL FOLLOW UP WITH NEW ORDERS.
--- NOTE | 2017-11-24 12:34 | NUR ---
VENT CHECK, SXN PT SMALL AMT OF CLEAR SECRETIONS, PT IS STILL RECEIVING DIALYSIS
[2017-11-24] MEDS: fentaNYL 1 MG in NACL 0.9% 80 ML IV PRN (13:51)
--- NOTE | 2017-11-24 14:23 | NUR ---
DIALYSIS COMPLETED BY MANAGER RN CASE. 3L OF FLUID TAKEN. VITAL SIGNS STABLE.
--- NOTE | 2017-11-24 15:06 | NUR ---
VENT CHECK, NO SXN REQUIRED AT THIS TIME, AIRWAY IS PATENT AND PT IS SLEEPING
[2017-11-24 15:37] LABS: BASOPHILS % (AUTO) 0.5 % (0.0-2.0); EOSINOPHILS # (AUTO) 0.1 K/uL (0-0.4); EOSINOPHILS % (AUTO) 4.6 % (0.0-4.0); HEMATOCRIT 22.2 % (36-52); HEMOGLOBIN 7.3 g/dL (12.0-18.0); LYMPHOCYTES # (AUTO) 0.4 K/uL (2.0-11.5); LYMPHOCYTES % (AUTO) 11.4 % (20.5-51.1); MEAN CORPUSCULAR HEMOGLOBIN 27 pg (27-31); MEAN CORPUSCULAR HGB CONC 33 g/dL (33-37); MEAN CORPUSCULAR VOLUME 82 fL (80-94); MONOCYTES # (AUTO) 0.2 K/uL (0.8-1.0); MONOCYTES % (AUTO) 7.5 % (1.7-9.3); NEUTROPHILS # (AUTO) 2.4 K/uL (1.8-7.7); PLATELET COUNT (AUTO) 100 K/uL (140-450); RED CELL DISTRIBUTION WIDTH 14.3 % (11.6-13.7); WHITE BLOOD COUNT (AUTO) 3.1 K/uL (4.8-10.8)
[2017-11-24 15:59] LABS: ANION GAP 7.7 (8-16); CARBON DIOXIDE 29.1 mmol/L (21-32); CREATININE 2.3 mg/dL (0.7-1.3); POTASSIUM 3.8 mmol/L (3.5-5.1)
--- NOTE | 2017-11-24 16:54 | NUR ---
DR. BENAVIDES IN TO SEE PT. WILL FOLLOW UP WITH NEW ORDERS.
--- NOTE | 2017-11-24 17:10 | NUR ---
vent check, snx pt small amt of clear airway is patent and family at bedside
--- NOTE | 2017-11-24 17:21 | NUR ---
RESIDUAL FROM NGT 20 ML. TUBE FEEDING INCREASED TO GOAL RATE OF 50 ML/HR ORDERED.
--- NOTE | 2017-11-24 17:28 | NUR ---
FAMILY AT BEDSIDE. PT'S VITAL SIGNS STABLE. NO ACUTE DISTRESS NOTED. SAFETY PRECAUTIONS IN PLACE. WILL CONTINUE TO MONITOR.
--- NOTE | 2017-11-24 18:18 | NUR ---
DR. CHUODHARY IN TO SEE AND EXAMINE PT. UPDATES GIVEN. WILL FOLLOW UP ON ORDERS.
[2017-11-24] MEDS ORDERED: FLUCONAZOLE 100 MG/NS PREMIX 50 ML IV SCH (19:10)
--- NOTE | 2017-11-24 19:30 | NUR ---
RECEIVED PATIENT ON BED SEDATED WITH CONTINOUS INFUSION OV VERSED AT 8 MG/HR AND ON FENTANYL DRIP AT 55 MCG/HR VIA CENTRAL LINE ON RIGHT INTERNAL JUGULAR; AND ON LASIX DRIP AT 7 MG/HR. ORALLY INTUBATED AND VENTILATED AT 30% FIO2.; SO2 98%. CARDIACSCOPE SHOWS ON SINUS RHYTHM NO ARRHYTHMIAS SEEN. ABDOMEN IS SOFT; HYPOACTIVE BOWEL SOUNDS; ON CONTINOUS TUBE FEEDING VIA NGT DIABETISOURCE AT 50 ML/HR; TOLERATED. WITH ABREU CATH IN PLACE DRAINING TO CLEAR YELLOW URINE OUTPUT, INTACT. WITH ROHINI CATH IN PLACE TO RIGHT I J FOR DIALYSIS ACCESS.
--- NOTE | 2017-11-24 19:31 | NUR ---
REPORT GIVEN TO NIGHT NURSE FOR CONTINUITY OF CARE. PT IS IN STABLE CONDITION.
[2017-11-24] MEDS: ALBUTEROL SULFATE/IPRATROPIU 3 ML SOL IH PRN (19:47)
--- NOTE | 2017-11-24 20:00 | NUR ---
ACCUCHECK DONE; RESULT IS 77; NO INSULIN DONE PER SLIDING SCALE.
--- NOTE | 2017-11-24 20:30 | NUR ---
VISITED BY THE BROTHER.
[2017-11-24] MEDS: INSULIN DETEMIR 100 UNITS/ML 10 ML VIAL SUBQ SCH (21:00)
[2017-11-24] MEDS ORDERED: FLUCONAZOLE 200 MG/NS PREMIX 100 ML IV ONE (21:46)
[2017-11-25] VITALS (31 sets, daily range): BP systolic 93–158; BP diastolic 54–96
[2017-11-25] MEDS: CLINDAMYCIN 600 MG in DEXTROSE 5% 50 ML IV SCH ×5 (00:01→23:31)
[2017-11-25] MEDS: fentaNYL 1 MG in NACL 0.9% 80 ML IV PRN (03:26)
[2017-11-25] MEDS: BLOOD GLUCOSE MONITORING 1 DEV DEV FS SCH ×7 (04:00→23:22)
--- NOTE | 2017-11-25 04:00 | NUR ---
MORNING BED BATH DONE, KEPT CLEAN DRY AND COMFORTABLE.
[2017-11-25] MEDS: INSULIN LISPRO SLIDING SCALE 100 UNITS/ML VIAL SUBQ PRN ×4 (04:22→17:02)
--- NOTE | 2017-11-25 04:30 | NUR ---
FOR DIALYSIS TODAY; HD NURSE HAWKINS INFORMED AND NOTIFIED.
[2017-11-25] MEDS: LORazepam 1 MG TAB PO SCH ×3 (05:00→21:19)
--- NOTE | 2017-11-25 05:00 | NUR ---
ATIVAN DOSE NOT GIVEN BECAUSE PATIENT IS ALREADY ON VERSED DRIP AND PLAN FOR WEANING TODAY MORNING AFTER 8 AM
[2017-11-25 06:05] LABS: BASOPHILS # (AUTO) 0.1 K/uL (0.00-0.22); BASOPHILS % (AUTO) 1.5 % (0.0-2.0); EOSINOPHILS # (AUTO) 0.2 K/uL (0-0.4); EOSINOPHILS % (AUTO) 2.9 % (0.0-4.0); HEMATOCRIT 22.5 % (36-52); HEMOGLOBIN 7.5 g/dL (12.0-18.0); LYMPHOCYTES # (AUTO) 0.8 K/uL (2.0-11.5); LYMPHOCYTES % (AUTO) 13.5 % (20.5-51.1); MEAN CORPUSCULAR HEMOGLOBIN 27 pg (27-31); MEAN CORPUSCULAR HGB CONC 33 g/dL (33-37); MEAN CORPUSCULAR VOLUME 83 fL (80-94); MONOCYTES # (AUTO) 0.4 K/uL (0.8-1.0); MONOCYTES % (AUTO) 7.2 % (1.7-9.3); NEUTROPHILS # (AUTO) 4.6 K/uL (1.8-7.7); NEUTROPHILS % (AUTO) 74.9 % (42.2-75.2); PLATELET COUNT (AUTO) 82 K/uL (140-450); RED BLOOD CELL COUNT(AUTO) 2.72 MIL/uL (4.20-6.10); RED CELL DISTRIBUTION WIDTH 14.5 % (11.6-13.7); WHITE BLOOD COUNT (AUTO) 6.1 K/uL (4.8-10.8)
--- NOTE | 2017-11-25 06:15 | NUR ---
URINE OUTPUT IS VERY LESS ONLY 80 ML FOR THE LAST 12 HRS; ABREU CATH FLUSHED 2X WITH SALINE; PATENT BUT NO URINE OUTPUT NOTED.
[2017-11-25 06:37] LABS: MAGNESIUM 1.8 mg/dL (1.8-2.4); PHOSPHORUS 4.5 mg/dL (2.5-4.9)
[2017-11-25 06:38] LABS: ANION GAP 10.4 (8-16); CARBON DIOXIDE 27.5 mmol/L (21-32); POTASSIUM 3.9 mmol/L (3.5-5.1)
[2017-11-25] MEDS: ALBUTEROL SULFATE/IPRATROPIU 3 ML SOL IH PRN (06:48)
--- NOTE | 2017-11-25 06:48 | NUR ---
RECEIVED PT IN [place] ON A/C 12 VT 450 PEEP 5 FIO2 30 ALARMS ARE ON AND AUDIBLE PT IN HF ASLEEP PT IS RESTRAINED PTS ET TUBE SIZE 7.5 IS SECURE 25 CM ANCHOR FAST IN PLACE CUFF PRESSURE IS 26 CMH20 BS EXP WHEEZING HHN GIVEN I\L WITH 3 MG DUONEB NO APPARENT DISTRESS VENT PLUGGED INTO RED OUTLET BMV HOB
[2017-11-25 06:56] LABS: CREATININE 2.7 mg/dL (0.7-1.3)
--- NOTE | 2017-11-25 08:13 | NUR ---
FENTANYL AND VERSED DRIPS OFF. FOR WEANING TODAY. EASY TO AROUSE. RESTLESS WHEN AWAKE. TRIES TO PULL ETT. REORIENTED PRN. PLAN TO WEAN PT OFF THE VENT EXPLAINED. NGT INTACT AND PATENT. DIABETIC SOURCE AT 50 ML/HR. RESIDUAL 90 ML. HOB ELEVATED 30 DEGREES. RT IJ ROHINI CATH. INTACT. FOR HEMODIALYSIS TODAY. INCONTINENT OF STOOLS. PERINEAL CARE DONE.
--- NOTE | 2017-11-25 08:20 | NUR ---
ENDORSED TO MARIYA MEDINA FOR CONTINUITY OF CARE.
--- NOTE | 2017-11-25 08:31 | NUR ---
PLACED PT ON CPAP 5 PS 10 PT WENT APNEIC WILL TRY LATER
[2017-11-25] MEDS: PANTOPRAZOLE 40 MG INJ VIAL IVP SCH (09:21)
[2017-11-25] MEDS: CALCIUM ACETATE 667 MG TAB PO SCH ×2 (09:22→16:30)
[2017-11-25] MEDS: SODIUM BICARBONATE 650 MG TAB PO SCH ×4 (09:22→21:19)
[2017-11-25] MEDS: MULTIVITAMIN 1 TAB PO SCH (09:22)
[2017-11-25] MEDS: FOLIC ACID 1 MG TAB PO SCH (09:23)
[2017-11-25] MEDS: THIAMINE 100 MG TAB PO SCH (09:26)
[2017-11-25] MEDS: DOCUSATE 100 MG/10 ML UDC GT SCH ×2 (09:29→21:00)
--- NOTE | 2017-11-25 09:30 | NUR ---
HEMODIALYSIS NURSE AT BEDSIDE.
[2017-11-25] MEDS: CALCIUM CARBONATE 500 MG TAB NG SCH ×2 (09:32→21:19)
[2017-11-25] MEDS: LACTOBACILLUS RHAMNOSUS GG 1 EACH CAP PO SCH (09:32)
--- NOTE | 2017-11-25 09:45 | NUR ---
HEMODIALYSIS STARTED AT BEDSIDE BY HD NURSE..
--- NOTE | 2017-11-25 09:50 | NUR ---
PER CHARGE NURSE'S REQUEST, SKIN CHECK ON PT AND NOTICE OF INCONTINENT ASSOCIATE DERMATITIS (IAD) TO 1. PERIANAL SMALL SLIT 1X0.5 CM, WOUND BED, PINK, MOIST, DEL WOUND PINK RECOMMENDATION WITH Z-GUARD AND COVER WITH OPTIFORM QD AND PRN IF SOILING. 2. ANTERIOR SCROTUM EDEMA WITH IAD 1X0.5CM, WOUND BED MOIST WITH PALE PINK IN COLOR, RECOMMENDATION TO APPLY WITH Z-GUARD AND LEAVE IT OPEN TO AIR. PRIMARY RN AND DR. GARCIA NOTIFY
--- NOTE | 2017-11-25 09:55 | NUR ---
RETURNED PT OT A/C RR IS 6 DIALYSIS BEING SET UP
--- NOTE | 2017-11-25 12:00 | NUR ---
ADA KING HELD. PT ON HEMODIALYSIS.
--- NOTE | 2017-11-25 13:13 | NUR ---
AWAKE, RESTLESS,BITING ETT. WANTS ETT OUT. EXPLAINED TO PT. THE PURPOSE OF ETT. BROTHER AT BEDSIDE. TO TRIED TO CALM PT. BUT REMAINED RESTLESS AND UPSET . ATIVAN 1 MG/NGT GIVEN SCHEDULED. ACETAMINOPHEN 650 MG GIVEN THROUGH NGT.
--- NOTE | 2017-11-25 13:30 | NUR ---
SLEEPING AT THIS TIME.
--- NOTE | 2017-11-25 14:15 | NUR ---
RETURNED PT OT A/C PTS RR IS 7 Addendum: 11/25/17 at 1415 by Jo Rios RT TO
--- NOTE | 2017-11-25 14:30 | NUR ---
DR. BENAVIDES NOTIFIED OF UNABLE TO WEAN PT. DUE TO DECREASED RESP RATE. GAVE ORDERS.
[2017-11-25] MEDS ORDERED: MORPHINE SULFATE 2 MG/ML SYR IVP PRN ×2 (15:25→15:35)
[2017-11-25] MEDS ORDERED: LORazepam 2 MG/ML VIAL IVP PRN (15:25)
[2017-11-25] MEDS: FUROSEMIDE 100 MG in DEXTROSE 5% 100 ML IV SCH ×2 (15:47→16:34)
--- NOTE | 2017-11-25 16:26 | NUR ---
VBG REPORTED TO DR GARCIA
--- NOTE | 2017-11-25 18:00 | NUR ---
INCONTINENT OF LARGE AMT. LOOSE YELLOWISH BROWN STOOLS. KEPT CLEAN AND DRY.
--- NOTE | 2017-11-25 19:05 | NUR ---
REPORT GIVEN TO AYAKA MERAZ.
--- NOTE | 2017-11-25 19:08 | NUR ---
RECEIVED REPORT FROM MARIYA MEDINA. INITIAL ASSESSMENT COMPLETED. PT IS ASLEEP AT THIS TIME. ETT TO VENT FIO2 30% TV 450 AC 12 PEEP 5. ATTACHED TO MANAGER INFUSION, PULSE OXIMETER. PT IS ON CONTINUOUS NGT FEEDING. IV ACCESS AT RIGHT IJ TLC, IVF INFUSING WELL, ON LASIX DRIP. PATENT, INTACT. HD ACCESS AT RIGHT IJ ROHINI CATH. ON BILATERAL SOFT WRIST RESTRAINTS. ABREU CATH IN PLACE, SCDS IN PLACE. BED IN LOW POSITION. SAFETY MEASURE ENSURE. WILL CONTINUE TO MONITOR.
[2017-11-25] MEDS ORDERED: Z-GUARD PASTE TP SCH (19:15)
[2017-11-25] MEDS: NYSTATIN CRE 100 MU/GM 15 GM TUBE TP SCH (21:00)
[2017-11-25] MEDS: FLUCONAZOLE 100 MG/NS PREMIX 50 ML IV SCH (21:19)
[2017-11-25] MEDS: INSULIN LANTUS 100 UNITS/ML 10 ML VIAL SUBQ SCH (21:25)
[2017-11-26] VITALS (18 sets, daily range): BP systolic 142–168; BP diastolic 86–99
--- NOTE | 2017-11-26 | NUR ---
GASTRIC RESIDUAL 80 ML. WILL CONTINUE TO MONITOR.
[2017-11-26] MEDS: FUROSEMIDE 100 MG in DEXTROSE 5% 100 ML IV SCH ×2 (03:02→14:10)
[2017-11-26] MEDS: BLOOD GLUCOSE MONITORING 1 DEV DEV FS SCH ×6 (04:15→23:51)
[2017-11-26] MEDS: LORazepam 1 MG TAB PO SCH ×3 (04:17→20:16)
[2017-11-26 05:04] LABS: BASOPHILS % (AUTO) 0.3 % (0.0-2.0); EOSINOPHILS # (AUTO) 0.3 K/uL (0-0.4); EOSINOPHILS % (AUTO) 3.1 % (0.0-4.0); HEMATOCRIT 21.7 % (36-52); HEMOGLOBIN 7.4 g/dL (12.0-18.0); LYMPHOCYTES # (AUTO) 0.5 K/uL (2.0-11.5); LYMPHOCYTES % (AUTO) 6.6 % (20.5-51.1); MEAN CORPUSCULAR HEMOGLOBIN 28 pg (27-31); MEAN CORPUSCULAR HGB CONC 34 g/dL (33-37); MEAN CORPUSCULAR VOLUME 82 fL (80-94); MONOCYTES # (AUTO) 0.5 K/uL (0.8-1.0); MONOCYTES % (AUTO) 5.6 % (1.7-9.3); NEUTROPHILS % (AUTO) 84.4 % (42.2-75.2); PLATELET COUNT (AUTO) 147 K/uL (140-450); RED BLOOD CELL COUNT(AUTO) 2.66 MIL/uL (4.20-6.10); RED CELL DISTRIBUTION WIDTH 13.8 % (11.6-13.7)
[2017-11-26] MEDS: CLINDAMYCIN 600 MG in DEXTROSE 5% 50 ML IV SCH ×4 (05:06→23:48)
--- NOTE | 2017-11-26 05:30 | NUR ---
MORNING CARE DONE. PT TOLERATED WELL
--- NOTE | 2017-11-26 06:36 | NUR ---
REPORT GIVEN TO MARIYA ROBERTSON
[2017-11-26 06:41] LABS: WHITE BLOOD COUNT (AUTO) 8.3 K/uL (4.8-10.8)
--- NOTE | 2017-11-26 06:44 | NUR ---
REC'D PT ON CARESCAPE VENT SETTINGS AC 12 VT 450 PEEP 5 FIO2 30% ALARMS ON AND FUNCTIONING PROPERLY, AMBU BAG IS AT SIDE OF VENT AND VENT IS PLUGGED INTO RED OUTLET, SXN PT SMALL AMT OF CLEAR SECRETIONS, B\S ARE CLEAR BILATERALLY, PT IS ORALLY INTUBATED WITH 7.5 ET TUBE AND SECURED WITH ANCHOR FAST AT 25 CM AT MIDLINE AND SKIN INTEGRITY IS INTACT NO HHN NEEDED AT THIS TIME
[2017-11-26 07:04] LABS: ANION GAP 8.2 (8-16); CREATININE 2.9 mg/dL (0.7-1.3); POTASSIUM 4.2 mmol/L (3.5-5.1)
[2017-11-26 07:12] LABS: PHOSPHORUS 4.5 mg/dL (2.5-4.9)
--- NOTE | 2017-11-26 07:30 | NUR ---
RECEIVED REPORT FROM JET BLADE POLISHER RN. PT IS ASLEEP, OPENS EYES TO CALLING NAME AND LIGHT SHAKING. FLACC 0. AFEBRILE. NORMAL SINUS RHYTHM ON MONITOR. S1, S2 AUSCULTATED. PT IS ETT TO VENT W/ SETTINGS: AC 12, FIO2 30%, VT 450, PEEP 5. BREATH SOUNDS CLEAR BILATERALLY. BREATHING IS EVEN AND UNLABORED. NO SOB NOTED. CENTRAL LINE TO RIGHT IJ TLC PATENT AND INTACT, RECEIVING LASIX DRIP AT 10 ML/HR. HD ACCESS ROHINI CATH TO RIGHT IJ INTACT. NGT TO RIGHT NARE IN PLACE, PLACEMENT CONFIRMED. PT IS RECEIVING TUBE FEEDING DIABETISOURCE AT 50 ML/HR, H2O FLUSH AT 50 ML Q6HR. 150 ML OF RESIDUALS NOTED. ABDOMEN IS SOFT, NONTENDER WITH ACTIVE BOWEL SOUNDS. PT IS ON ABREU CATH, DRAINING URINE TO GRAVITY DRAINAGE BAG. SCROTAL EDEMA NOTED. PT IS ON BILATERAL SOFT WRIST RESTRAINTS. SKIN IS DRY AND WARM TO TOUCH. SCDS IN PLACE FOR VTE PROPHYLAXIS. HOB 30 DEGREES, BED IN LOW POSITION AND CALL LIGHT WITHIN REACH. WILL CONTINUE TO MONITOR.
--- NOTE | 2017-11-26 08:05 | NUR ---
DR. ROWELL AND RESIDENT GROUP IN TO SEE PT. WILL FOLLOW UP ON ORDERS.
[2017-11-26] MEDS: SODIUM BICARBONATE 650 MG TAB PO SCH ×4 (08:12→20:16)
[2017-11-26] MEDS: THIAMINE 100 MG TAB PO SCH (08:13)
[2017-11-26] MEDS: DOCUSATE 100 MG/10 ML UDC GT SCH ×2 (08:13→20:14)
[2017-11-26] MEDS: MULTIVITAMIN 1 TAB PO SCH (08:13)
[2017-11-26] MEDS: FOLIC ACID 1 MG TAB PO SCH (08:13)
[2017-11-26] MEDS: PANTOPRAZOLE 40 MG INJ VIAL IVP SCH (08:13)
[2017-11-26] MEDS: LACTOBACILLUS RHAMNOSUS GG 1 EACH CAP PO SCH (08:13)
[2017-11-26] MEDS: CALCIUM ACETATE 667 MG TAB PO SCH ×2 (08:13→16:08)
[2017-11-26] MEDS: CALCIUM CARBONATE 500 MG TAB NG SCH ×2 (08:14→20:15)
[2017-11-26] MEDS: NYSTATIN CRE 100 MU/GM 15 GM TUBE TP SCH ×2 (08:15→21:08)
--- NOTE | 2017-11-26 08:40 | NUR ---
MEDICATIONS ADMINISTERED. PT TOLERATED WELL.
--- NOTE | 2017-11-26 09:08 | NUR ---
CHANGED VENT SETTINGS TO CPA 5 PS 10
[2017-11-26] MEDS: LEVOFLOXACIN 500 MG/D5W PREMIX 100 ML IV SCH (09:39)
--- NOTE | 2017-11-26 10:49 | NUR ---
PT IS ASLEEP AT THIS TIME. TOLERATING CPAP. NO SOB OR DISTRESS NOTED. VITAL SIGNS STABLE. HOB 30 DEGREES. SAFETY PRECAUTIONS IN PLACE. WILL CONTINUE TO MONITOR.
--- NOTE | 2017-11-26 11:00 | NUR ---
PULLED OUT NGT AT THIS TIME. INSERTED A NEW ONE. WAITING FOR XRAY FOR VERIFICATION OF PLACEMENT. Addendum: 11/26/17 at 2342 by Mali Alejandre RN WRONG ENTRY
--- NOTE | 2017-11-26 11:05 | NUR ---
VENT CHECK, SXN PT SMALL AMT OF WHITE SECRETIONS, PT DOING WELL ON CPAP MODE NIF-23
--- NOTE | 2017-11-26 11:22 | NUR ---
TUBE FEEDING RESIDUAL 200 ML. TF HELD ORDERED. NO DISCOMFORT OR VOMITING. WILL CONTINUE TO MONITOR.
--- NOTE | 2017-11-26 12:20 | NUR ---
TUBE FEEDING RESIDUAL 150 ML. PT IS RESTING COMFORTABLY. NO SIGNS OF DISTRESS OR DISCOMFORT. HOB 30 DEGREES. WILL CONTINUE TO MONITOR.
--- NOTE | 2017-11-26 13:10 | NUR ---
PER DR. BENAVIDES, TUBE FEEDING HELD FOR POSSIBLE EXTUBATION.
--- NOTE | 2017-11-26 13:14 | NUR ---
VENT CHECK, SXN PT SMALL AMT OF WHITE SECRETIONS, B\S ARE CLEAR PT IS RESTING
--- NOTE | 2017-11-26 13:17 | NUR ---
CHEST X-RAY DONE. PT TOLERATED WELL.
--- NOTE | 2017-11-26 13:33 | NUR ---
DR. RASHEED IN TO SEE AND EXAMINE PT. WILL FOLLOW UP ON ORDERS.
--- NOTE | 2017-11-26 13:39 | NUR ---
DR. RASHEED MADE AWARE OF INCREASED BLOOD PRESSURE OF 163/102. NO NEW ORDER AT THIS TIME. WILL CONTINUE TO MONITOR.
--- NOTE | 2017-11-26 15:05 | NUR ---
PT IS TOLERATING CPAP. NO SOB OR DISTRESS NOTED. VITAL SIGNS STABLE. FLACC 0. SAFETY PRECAUTIONS IN PLACE. WILL CONTINUE TO MONITOR.
--- NOTE | 2017-11-26 15:18 | NUR ---
REPORTED CHEST X-RAY RESULT TO DR. BENAVIDES. ORDER RECEIVED.
--- NOTE | 2017-11-26 15:24 | NUR ---
DR. BENAVIDES CALLED AND ORDERED FOR PT TO BE EXTUBATED AND PLACED ON 3LNC TO KEEP O2 SAT ABOVE 92% AND VENT ON STANDBY FOR 12HOURS, PT WAS EXTUBATED AT 1528 WITH MARIYA MEDINA AT BEDSIDE Addendum: 11/26/17 at 1533 by Ne Wisdom RT PLACED ON 3LNC
--- NOTE | 2017-11-26 15:28 | NUR ---
PT EXTUBATED. TOLERATED WELL. PT IS ON O2 AT 3 LPM/NC, O2 SAT 99%, RR 20. NO SOB OR DISTRESS. PER DR. GARCIA RESUME TUBE FEEDING 30 MIN LATER. WILL CONTINUE TO MONITOR.
--- NOTE | 2017-11-26 16:00 | NUR ---
NGT PLACEMENT CONFIRMED. TUBE FEEDING RESUMED. RESIDUAL 50 ML. WILL CONTINUE TO MONITOR.
[2017-11-26] MEDS: DEXTROSE 50% 50 ML SYR IVP PRN (16:10)
--- NOTE | 2017-11-26 16:16 | NUR ---
11/26/17 RD FOLLOW UP COMPLETED. PLEASE REFER TO NUTRITION PROGRESS NOTE UNDER CARE ACTIVITY FOR ESTIMATED NUTRITION NEEDS. 1.CONTINUE ON DIABETISOURCE AC AT 50 ML/HR 2.CONSIDER: DIABETESOURCE AC @70 ML/HOUR THIS WILL PROVIDE 2016 KCALS AND 101 GM PRO PER DAY, TO MEET 100% ESTIMATED ENERGY AND 98% ESTIMATED PRO NEEDS PER DAY. 3.CONSULT RDN PRN. 4.RD WILL F/U 2-3 DAYS; HIGH RISK. RD TO FOLLOW-UP 2-3DAYS, HIGH RISK DIANNE BERNSTEIN RD
--- NOTE | 2017-11-26 16:50 | NUR ---
PT RESTING COMFORTABLY AT THIS TIME. SISTER AT BEDSIDE AND UPDATED GIVEN ON PT.
--- NOTE | 2017-11-26 18:35 | NUR ---
DR. COFFMANG IN TO SEE AND EXAMINE PT, AND AWARE OF BP OF 168/96. WILL FOLLOW UP WITH NEW ORDERS.
[2017-11-26] MEDS: ALBUTEROL SULFATE/IPRATROPIU 3 ML SOL IH PRN (18:40)
--- NOTE | 2017-11-26 19:11 | NUR ---
REPORT GIVEN TO PHARMACEUTICAL SERVICE REPRESENTATIVE RN FOR CONTINUITY OF CARE. PT IS IN STABLE CONDITION.
--- NOTE | 2017-11-26 19:28 | NUR ---
RECEIVED REPORT FROM DAY RN FOR CONTINUITY OF CARE.
--- NOTE | 2017-11-26 19:28 | NUR ---
PATIENT IS ASLEEP, AROUSABLE BY NAME. ON O2 AT 2LPM/NC. SKIN WARM TO TOUCH WNL, TOENAILS ARE SLIGHTLY THICKENED, +2 PITTING EDEMA BLE, FINE HAIR GROWTH AND UNABLE TO PALPATE RIGHT PEDAL PULSE, +1 LEFT PEDAL PULSE. 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 RIGHT NARES NGT TO DIABETISOURCE AT 50 ML/H, TOLERATING WELL. FC PATENT AND INTACT TO CLEAR YELLOW URINE IN MODERATE AMOUNT. RIJ CENTRAL LINE AND ROHINI CATHETER PATENT AND INTACT, DRESSING DRY AND INTACT. CALL LIGHT WITHIN REACH. BED AT LOWEST POSSIBLE POSITION. WILL CONTINUE TO MONITOR PATIENT.
[2017-11-26] MEDS: METOLAZONE 2.5 MG TAB GT SCH (20:15)
[2017-11-26] MEDS: FLUCONAZOLE 100 MG/NS PREMIX 50 ML IV SCH (20:15)
[2017-11-26] MEDS: INSULIN LANTUS 100 UNITS/ML 10 ML VIAL SUBQ SCH (20:20)
--- NOTE | 2017-11-26 22:11 | NUR ---
PATIENT HAD A LARGE LOOSE BM YELLOW IN COLOR. CLEANED AND REPOSTIONED AT THIS TIME. PATIENT TOLERATED PROCEDURE WELL.
--- NOTE | 2017-11-26 23:00 | NUR ---
PULLED OUT NGT AT THIS TIME. REINSERTED A NEW ONE. WAITING FOR X RAY FOR PLACEMENT VERIFICATION.
--- NOTE | 2017-11-26 23:40 | NUR ---
PATIENT IS SLEEPING QUIETLY AT THIS TIME. VS STABLE.
[2017-11-27] VITALS: BP 158/81
[2017-11-27] MEDS: FUROSEMIDE 100 MG in DEXTROSE 5% 100 ML IV SCH (01:33)
[2017-11-27 02:00] VITALS: BP 147/98
--- NOTE | 2017-11-27 02:30 | NUR ---
CALLED TO SEE PATIENT, PATIENTS SAO2 IS DECREASING AND PLACED ON 100% NRB MASK AND SUCTIONED WITH YANKAUER-OBTAINED SMALL AMOUNTS OF SECRETIONS. SAO2 INCREASED TO 100% ON PULSE OX RAPIDLY. PATIENT WAS DIAPHORETIC, BLOOD SUGAR WAS TESTED AND WAS 15 AND NURSE GAVE D50. PATIENT WAS STABLE AFTER THAT AND BLOOD SUGAR INCREASED TO 75 AND VITAL SIGNS STABLE
[2017-11-27] MEDS: DEXTROSE 50% 50 ML SYR IVP PRN ×3 (02:38→08:13)
--- NOTE | 2017-11-27 02:38 | NUR ---
VOMITED ONCE TO YELLOW COLOR VOMITUS IN SMALL AMOUNT, GURGLING SOUND NOTED. SUCTIONED SMALL AMOUNT OF SECRETIONS. PATIENT IS DROWSY BUT AROUSABLE, BLOOD SUGAR 15. D50 50 GIVEN. RT CALLED. PATIENT PLACED ON NON REBREATHER MASK, O2 SAT 100%. WILL CONTINUE TO MONITOR PATIENT.
--- NOTE | 2017-11-27 02:40 | NUR ---
RESIDENT PHYSICIAN, DR CHOUDHARY MADE AWARE OF PATIENT'S CONDITION. WILL CONTINUE TO MONITOR.
--- NOTE | 2017-11-27 02:50 | NUR ---
BS RECHECKED 77.
--- NOTE | 2017-11-27 03:34 | NUR ---
RESTING QUIETLY AT THIS TIME. V/S STABLE.
--- NOTE | 2017-11-27 03:55 | NUR ---
BLOOD SUGAR 28. D50 [address] CHOUDHARY MADE AWARE.
[2017-11-27] MEDS: BLOOD GLUCOSE MONITORING 1 DEV DEV FS SCH ×2 (03:57→07:59)
[2017-11-27 04:00] VITALS: BP 137/78
--- NOTE | 2017-11-27 04:30 | NUR ---
BS 80. RESIDENT PHYSICIAN, DR. GARCIA MADE AWARE.
[2017-11-27] MEDS: LORazepam 1 MG TAB PO SCH (05:06)
[2017-11-27] MEDS: CLINDAMYCIN 600 MG in DEXTROSE 5% 50 ML IV SCH (05:07)
[2017-11-27 05:18] LABS: HEMOGLOBIN 7.3 g/dL (12.0-18.0); MEAN CORPUSCULAR HEMOGLOBIN 28 pg (27-31); MEAN CORPUSCULAR HGB CONC 33 g/dL (33-37); MEAN CORPUSCULAR VOLUME 83 fL (80-94); PLATELET COUNT (AUTO) 160 K/uL (140-450); RED BLOOD CELL COUNT(AUTO) 2.67 MIL/uL (4.20-6.10); WHITE BLOOD COUNT (AUTO) 6.8 K/uL (4.8-10.8)
[2017-11-27 06:00] VITALS: BP 125/73
[2017-11-27 06:11] LABS: ANION GAP 9.6 (8-16); CARBON DIOXIDE 32.3 mmol/L (21-32); CREATININE 3.1 mg/dL (0.7-1.3); POTASSIUM 3.9 mmol/L (3.5-5.1)
[2017-11-27 06:21] LABS: MAGNESIUM 1.9 mg/dL (1.8-2.4)
--- NOTE | 2017-11-27 06:32 | NUR ---
NOT IN DISTRESS. VS STABLE.
[2017-11-27] MEDS ORDERED: CALCIUM ACETATE 667 MG TAB PO SCH (07:13)
--- NOTE | 2017-11-27 07:20 | NUR ---
REPORT GIVEN TO DAY RN FOR CONTINUITY OF CARE. PATIENT IN STABLE CONDITION.
--- NOTE | 2017-11-27 07:30 | NUR ---
ASSUMED PATIENT CARE, NURSING ASSESSMENT COMPLETED. NOTED SHALLOW RESPIRATIONS, AND LETHARGY. BLOOD SUGAR CHECKED AND IS SHOWING CRITICAL LOW RESULTS. D50 IV PUSH GIVEN PER PROTOCOL.
[2017-11-27 08:00] VITALS: BP 128/71
[2017-11-27] MEDS: CALCIUM ACETATE 667 MG TAB PO SCH (08:00)
[2017-11-27] MEDS ORDERED: DEXT 5% / NACL 0.9% 500 ML IV SCH (08:10)
--- NOTE | 2017-11-27 08:15 | NUR ---
PATIENT'S RESPIRATIONS IMPROVING AND IS MORE AROUSABLE BUT REMAINS TO BE LETHARGIC, BS REPEAT=65. ONE MORE DOSE OF D50 IVP GIVEN.
--- NOTE | 2017-11-27 08:20 | NUR ---
RESIDENT PHYSICIANS ROUNDING WITH PATIENT, COORDINATED WITH CARE ACCORDINGLY. WITH VERBAL ORDER TO GIVE ONE MORE D50 IVP PER EXISTING ORDERS.
[2017-11-27] MEDS: MULTIVITAMIN 1 TAB PO SCH (09:00)
[2017-11-27] MEDS: SODIUM BICARBONATE 650 MG TAB PO SCH (09:00)
[2017-11-27] MEDS: METOLAZONE 2.5 MG TAB GT SCH (09:00)
[2017-11-27] MEDS: FOLIC ACID 1 MG TAB PO SCH (09:00)
[2017-11-27] MEDS: LACTOBACILLUS RHAMNOSUS GG 1 EACH CAP PO SCH (09:00)
[2017-11-27] MEDS: DOCUSATE 100 MG/10 ML UDC GT SCH (09:00)
[2017-11-27] MEDS: CALCIUM CARBONATE 500 MG TAB NG SCH (09:00)
[2017-11-27] MEDS: THIAMINE 100 MG TAB PO SCH (09:00)
[2017-11-27] MEDS: NYSTATIN CRE 100 MU/GM 15 GM TUBE TP SCH (09:00)
[2017-11-27] MEDS ORDERED: CALCIUM CARB/VIT-D 500 MG/200 IU 1 TAB ONE (09:24)
[2017-11-27] MEDS ORDERED: METOLAZONE 5 MG TAB ONE (09:26)
[2017-11-27] MEDS ORDERED: NACL 0.9% IV SCH (09:42)
[2017-11-27] MEDS ORDERED: FUROSEMIDE IV SCH (09:42)
--- NOTE | 2017-11-27 09:47 | NUR ---
SOLOIST DANCER note (bedside swallow evaluation order received) 0943. Bedside swallow evaluation order received, chart reviewed. Pt was intubated on 11/21/2017 and extubated 11/26/2017 at 15:28. To reduce pt's risk for silent aspiration, which is the greatest during the first 24 hours s/p extubation, bedside swallow evaluation will be held until 24 hours s/p extubation have elapsed. Recommend: 1) strict NPO (oral cares only) 2) continue alternative method(s) of nutrition/hydration/medication vs comfort measures, as appropriate, in the interim 3) SOLOIST DANCER to f/u to provide bedside swallow evaluation following 24 hours s/p extubation and when pt able to participate safely, as appropriate. PVE Addendum: 11/27/17 at 1012 by Matilda OROURKE 1010. Team working to reintubate pt at this time. Physician to reorder bedside swallow evaluation once pt is successfully re-extubated and tolerates for 24 hours s/p extubation, as appropriate.
--- NOTE | 2017-11-27 09:50 | NUR ---
PER DR GARCIA, PATIENT WILL NEED TO BE INTUBATED BASED ON ABG RESULTS. INTUBATION SETUP PREPARED.
[2017-11-27 09:51] LABS: LYMPHOCYTES % (MANUAL) 7 % (20-46); MONOCYTES % (MANUAL) 6 % (5-12)
--- NOTE | 2017-11-27 09:57 | NUR ---
SUX 60 MG GIVEN IVP PER RAPID INTUBATION PROTOCOL. MAINTAINED ON CARDIAC MONITORING, ALL PARTICIPATING STAFF AT BEDSIDE.
--- NOTE | 2017-11-27 09:57 | NUR ---
PATIENT MAINTAINED ON CARDIAC MONITORING, SUCTION SETUP AT BEDSIDE, ELECTRICAL PANEL BUILDER, ER MD DR TORRES, AND RESIDENT PHYSICIAN DR GARCIA AT BEDSIDE. ETOMIDATE 20 MG IVP ADMINISTERED PER MD ORDER FOR RAPID INTUBATION PROTOCOL.
--- NOTE | 2017-11-27 10:02 | NUR ---
PATIENT SUDDENLY PRESENTING WITH A DECREASING HR 40/MIN AND PROGRESSIVELY DECREASING AT THIS POINT, BOTH MDS MADE AWARE OF DEVELOPMENT. 2 ATTEMPTS OF ORAL INTUBATION ATTEMPTED BUT UNABLE TO SUCCESSFULLY INTUBATE, PER MD, AIRWAY IS DIFFICULT TO VISUALIZE.
--- NOTE | 2017-11-27 10:03 | NUR ---
CODE BLUE INITIATED, CHEST COMPRESSIONS COMMENCED. PLEASE REFER TO PAPER CODE BLUE SHEETS FOR FURTHER DOCUMENTATION.
--- NOTE | 2017-11-27 10:20 | NUR ---
Pumper Gauger Apprentice note: At about 10:20 am I contacted Patient's Sister Ghazala [phone] (Slovenian Speaking) to Inform her that Patient's status has changed drastically and Patient was having complications at the moment. I stress the urgency of coming to the hospital with Patient's sister. Mrs. Vivar agreed immediately, stating that she was at work in [place] and that will be calling her other siblings and arrive to [facility] in about 30 mins.
[2017-11-27] MEDS ORDERED: EPINEPHrine 1:1000 1 MG in DEXTROSE 5% 250 ML IV SCH (10:25)
--- NOTE | 2017-11-27 10:40 | NUR ---
AFTER 37 MINUTES OF CPR AND SEVERAL ROUNDS OF ACLS DRUGS, PATIENT REMAINS PULSELESS AND CPR CALLED OFF BY , PATIENT PRONOUNCED BY TAMIKA LESTER MD.
--- NOTE | 2017-11-27 11:00 | NUR ---
ABG was done and read back and verified to doctor. Doctor ordered for patient to be intubated. During intubation patient heart rate stopped. Code blue was called and advanced cardiac life savings was done. Compression was done and medication was given. Patient after several rounds of compressions. Addendum: 11/27/17 at 1336 by Naresh Virgen RT THE ABG WAS DONE AT 0900 HOURS
--- NOTE | 2017-11-27 11:15 | NUR ---
At about 11:15am I was informed that Patient's Sisters Ghazala Figueroa, and Desiree (Both Slovenian Speaking) had arrived and was waiting in the lobby to meet with MD. Lloyd and jimmy bond underwriter to Inform them both about the recent passing of Patient; despite of all efforts made for patient to survive complications. The meeting was held in the small conference room with MD. Lloyd explaining medical complications that lead to patient's at 10:40 am today. Ghazala and Desiree were overwhelmed when hearing the news, upset and crying for brief moments while trying to process information provided by MD. Lloyd who gently was explaining them both Patient's complications initially with patient's diabetes, breathing, kidney and liver failure. Both listed as best as they could then Ghazala explained about her visit with patient last night at about 19:00. Per Ghazala patient was anxious and restless yesterday but at the end of the visit he became calm and that is how she saw him last. She stated " he wanted to talk to me and say something to me" "I left last night hoping he makes progress enough today to do his dialysis and slowly get better". MD. Lloyd and jimmy bond underwriter listed to her, and she ask couple questions to Before she left meeting giving her condolences to the family. These bond underwriter process with family feelings of loss, listen to both as patient's younger sibling Fausto arrive and was directed to meeting with family. I provided information given to sister's earlier; he begin to cry and hold oldest sister as he explained that patient has two daughter's in [place] which he will have to contact and give the news. Family process and calmly set a plan to go see patient, sign documents need for [facility] to release patient Mortuary of their choice. I explained and provided family with information and resources. Family stated having no plans in place neither a Mortuary assigned. I contact Krysten Mac and set up a meeting with family and a bilingual inbound sales representative for today at about 14:00 family agreed. Family then went to see patient and sign documentation needed to do release. Family express appreciation for [facility] staff care and attention provided to patient and family.
--- NOTE | 2017-11-27 13:20 | NUR ---
FAMILY CAME TO VIEW THE BODY WITH SOCIAL SERVICE ROBYN MONTEZ TALK TO YAYA LANDERS .
--- NOTE | 2017-11-27 13:25 | NUR ---
CARLOTA HAYNES SIGN THE BODY RELEASE TO [facility].
[2017-11-27] MEDS ORDERED: INSULIN LANTUS 100 UNITS/ML 10 ML VIAL SUBQ SCH (21:00)
[2017-11-28] MEDS ORDERED: LEVOFLOXACIN 500 MG/D5W PREMIX 100 ML IV SCH ×2 (09:00→10:00)
== END 2017-11-27 19:32 | disposition expired | DRG 870 ==
LOC: MED 10:41 → MERGE 13:24 → MIC 13:24
PROVIDERS: ADMIT Family Medicine Sports Medicine; ATTEND Family Medicine Sports Medicine
PROC: 02HV33Z Insertion of Infusion Device into Superior Vena Cava, Percutaneous Approach (ICD-10-PCS; 2017-11-20)
PROC: 5A1955Z Respiratory Ventilation, Greater than 96 Consecutive Hours (ICD-10-PCS; principal; 2017-11-21)
PROC: 0BH17EZ Insertion of Endotracheal Airway into Trachea, Via Natural or Artificial Opening (ICD-10-PCS; 2017-11-21)
PROC: 05HM33Z Insertion of Infusion Device into Right Internal Jugular Vein, Percutaneous Approach (ICD-10-PCS; 2017-11-21)
PROC: B543ZZA Ultrasonography of Right Jugular Veins, Guidance (ICD-10-PCS; 2017-11-21)
PROC: 5A1D70Z Performance of Urinary Filtration, Intermittent, Less than 6 Hours Per Day (ICD-10-PCS; 2017-11-22)
PROC: 5A1D70Z Performance of Urinary Filtration, Intermittent, Less than 6 Hours Per Day (ICD-10-PCS; 2017-11-23)
PROC: 5A1D70Z Performance of Urinary Filtration, Intermittent, Less than 6 Hours Per Day (ICD-10-PCS; 2017-11-24)
PROC: 5A12012 Performance of Cardiac Output, Single, Manual (ICD-10-PCS; 2017-11-27)
DX: A41.9 Sepsis, unspecified organism (principal); J96.01 Acute respiratory failure with hypoxia; N17.0 Acute kidney failure with tubular necrosis; J69.0 Pneumonitis due to inhalation of food and vomit; G93.41 Metabolic encephalopathy; R65.21 Severe sepsis with septic shock; E43 Unspecified severe protein-calorie malnutrition; E11.10 Type 2 diabetes mellitus with ketoacidosis without coma; I50.43 Acute on chronic combined systolic (congestive) and diastolic (congestive) heart failure; D68.59 Other primary thrombophilia; E87.1 Hypo-osmolality and hyponatremia; I42.9 Cardiomyopathy, unspecified; I46.9 Cardiac arrest, cause unspecified; E11.22 Type 2 diabetes mellitus with diabetic chronic kidney disease; E87.8 Other disorders of electrolyte and fluid balance, not elsewhere classified; W18.39XA Other fall on same level, initial encounter; K74.60 Unspecified cirrhosis of liver; E83.39 Other disorders of phosphorus metabolism; D64.9 Anemia, unspecified; B37.9 Candidiasis, unspecified; E78.5 Hyperlipidemia, unspecified; E87.5 Hyperkalemia; B35.6 Tinea cruris; E02 Subclinical iodine-deficiency hypothyroidism; N18.9 Chronic kidney disease, unspecified; E11.51 Type 2 diabetes mellitus with diabetic peripheral angiopathy without gangrene; Z79.84 Long term (current) use of oral hypoglycemic drugs; Z79.82 Long term (current) use of aspirin; Z79.899 Other long term (current) drug therapy; Z89.422 Acquired absence of other left toe(s); Z89.421 Acquired absence of other right toe(s); Y93.89 Activity, other specified; Y92.89 Other specified places as the place of occurrence of the external cause; Y99.8 Other external cause status; Z68.26 Body mass index [BMI] 26.0-26.9, adult; Z87.891 Personal history of nicotine dependence
CPT/HCPCS: 31500; 36415; 36600; 70450; 71045; 71250; 74018; 76604; 76700; 80048; 80053; 80305; 81001; 82009; 82140; 82150; 82607; 82728; 82746; 82803; 82948; 83036; 83540; 83605; 83690; 83735; 83880; 84100; 84439; 84443; 84484; 85025; 85045; 85610; 85730; 86704; 86706; 86708; 86709; 86803; 87040; 87070; 87081; 87205; 87340; 93005; 93308; 93925; 93970; 94002; 94003; 94640; 96361; 96365; 96375; 96376; 97140; 97530; 99285; C9113; G0482; J0171; J0696; J1265; J1450; J1642; J1644; J1815; J1940; J1956; J2060; J2250; J2270; J3010; J3360; J3475; J3490; J7030; J7060; J7620; Q0092